=== PATIENT | female | born 1980 | race Hispanic/Latino ===

== ENCOUNTER 2017-06-09 11:23 | Emergency (ER) | payer OTHER ==
[2017-06-09] MEDS ORDERED: Bupivacaine 0.25% 10 ML VIAL ONE (13:38)
[2017-06-09] MEDS ORDERED: Piperacillin/Tazobactam 3.375 GM in Sodium Chloride 0.9% 100 ML IVPB SCH (13:45)
[2017-06-09] MEDS ORDERED: Ibuprofen 200 MG TAB ONE (15:12)
== END 2017-06-09 15:16 | disposition home or self-care (01) ==
LOC: ERS 11:23
DX: N76.0 Acute vaginitis (principal); K50.90 Crohn's disease, unspecified, without complications
CPT/HCPCS: 56405; 87070; 87205; 96365; J2543; J7050; S0020

== ENCOUNTER 2017-11-03 16:11 | Inpatient (IN) | payer OTHER ==
[~2017-11-03 16:11] MED LIST: Iopamidol 370 76% 100 ML VIAL ONE
[2017-11-03 16:43] LABS: #Eosinphils 0.1 thou/uL (0.0-0.7); #Lymphocytes 1.4 thou/uL (1.20-3.40); #Monocytes 0.5 thou/uL (0.11-0.59); #Neutrophils 6.7 thou/uL (1.40-6.50); %Basophils 0.2 % (0.0-1.0); %Lymphocytes 15.7 % (21.0-51.0); %Monocytes 5.2 % (0.0-10.0); %Neutrophils 77.9 % (42.0-75.0); Hemoglobin 9.1 g/dL (12.0-16.0); Mean Corpuscular Hemoglobin 24.9 pg (27.0-31.0); Mean Corpuscular Volume 80.4 fl (81.0-99.0); Mean Platelet Volume 6.4 fL (7.4-10.4); Platelet Count 493 thou/uL (130-400); RBC Distribution Width 14.4 % (11.5-14.5); Red Blood Cell (RBC) Count 3.66 mill/uL (4.20-5.40); White Blood Cell (WBC) Count 8.6 thou/uL (4.8-10.8)
[2017-11-03 17:00] LABS: Bilirubin Negative (Negative); Blood, Urine Small (Negative); Clarity TURBID (Clear); Glucose, Urine (Dipstick) Negative (Negative); Leukocyte Large (Negative); Nitrite Negative (Negative); Protein, Urine (Dipstick) 30 mg/dL (Neg-Trace); Specific Gravity, Urine 1.027 (1.002-1.036); pH, Urine 5.5 (5.0-9.0)
[2017-11-03 17:02] LABS: Bacteria/HPF Rare-Few HPF (None Seen); Hyaline Casts/LPF 0-3 HYALINE CAST LPF (0-3 Hyaline); Pathc Cast-AUWi Flag 0.58 (0-2.49); Squamous Epithelial 0-3 HPF (0-3)
[2017-11-03 17:04] LABS: ALT (SGPT) Less than 7 U/L (8-55); AST (SGOT) 7 U/L (5-34); Albumin 3.1 g/dL (3.5-5.0); Alkaline Phosphatase 84 U/L (40-150); Anion Gap 9 mmol/L (10-20); BUN (Urea Nitrogen) 10 mg/dL (7.0-18.7); Bilirubin, Total 0.3 mg/dL (0.2-1.2); Calc. Creatinine Clearance 0 mL/min (70-130); Calcium 8.6 mg/dL (7.8-10.44); Carbon Dioxide 25 mmol/L (22-29); Chloride 104 mmol/L (98-107); Estimated GFR-MDRD 78; Globulin 4.9 g/dL (2.4-3.5); Glucose 97 mg/dL (70-105); Lipase 17 U/L (8-78); Potassium 3.5 mmol/L (3.5-5.1); Sodium 134 mmol/L (136-145)
[2017-11-03 17:04] LABS: Yeast-AUWi Flag 37.9 (0-25.0)
[2017-11-03 17:05] LABS: Pregnancy Test - Urine (BHCG) Negative (Negative); Pregu Control Background? CLEAR/WHITE (CLR/WHITE); Pregu Control Bar Appear? YES (CONTROL BAR); Specific Gravity 1.027 (1.002-1.036)
[2017-11-03 17:19] LABS: RBC/HPF 0-3 HPF (0-3); Renal Epithelial None Seen HPF (0-3); Transitional Epithelial NONE SEEN HPF (0-3); Yeast-All Forms None Seen HPF (None Seen)
[2017-11-03 17:20] LABS: Crystals/HPF 4+ AMORPH URATES HPF (Negative)
--- NOTE | 2017-11-03 18:34 | CT ---
CT OF THE ABDOMEN AND PELVIS WITH IV CONTRAST 11/03/17 INDICATION: History of Crohn's disease. Concern for possible colitis. COMPARISON: CT of the abdomen and pelvis dated 02/14/16. CT of the pelvis dated 10/12/16. FINDINGS: Lung bases are clear. The gallbladder is surgically absent. Liver, spleen, pancreas, adrenal glands a nd kidneys are normal appearing. There is wall thickening and inflammatory stranding involving the distal ileum, cecum, and appendix w ith surrounding inflammatory infiltration and fluid present within the right lower quadrant of the ab domen. There is no evidence to suggest perforation. No drainable fluid collection is evident. There i s mild free fluid in the pelvis. There is a 3 cm follicle within the right ovary. Bladder is decompressed. No acute osseous abnormalit y is evident. IMPRESSION: 1. Wall thickening with inflammation involving the ileum, cecum, portions of appendix, mild free fluid in the pelvis. No drainable fluid collection is evident. No definite free air is noted. 2. Right adnexal cyst. POS: EDEL
[2017-11-03] MEDS ORDERED: Fentanyl 100 MCG/2 ML VIAL ONE (18:45)
[2017-11-03] MEDS ORDERED: metroNIDAZOLE 500 MG/100 ML BAG ONE (19:23)
[2017-11-03] MEDS ORDERED: Piperacillin/Tazobactam 4.5 GM VIAL ONE (19:23)
[2017-11-03] MEDS ORDERED: methylPREDNISolone Sod Succ/PF 125 MG/2 ML VIAL ONE (19:23)
--- NOTE | 2017-11-03 20:05 | HP ---
CHIEF COMPLAINT: Abdominal pain. HISTORY OF PRESENT ILLNESS: This is a 37-year-old female admitted to my service from Dr. White in the [facility]. The patient has a history of Crohn disease, mostly perianal without m ultiple abscesses and fistulas. She was previously on Humira under the care of Dr. Kwabena Rodriguez; ho gary, with an insurance change, the medicines were deemed too expensive, not covered by her insuranc e. She has been off all medicines for a few years now, has been lost to follow up with Dr. Rodriguez. S he presents with severe pain in the right lower quadrant. This kept her from eating much over the la st few days. She is also noted significantly more diarrhea than she had had. No dysuria, no blood i n stool. No significant vomiting. She is unsure of the extent of her previous Crohn disease other t myles involving her perianal area. She is unsure if she had previous small bowel involvement or not. Her CT scan shows phlegmonous changes in the right lower quadrant. The pain is described as 03/16 an d sharp. Nothing makes it better or worse. PAST MEDICAL HISTORY: Crohn disease, perianal involvement. PAST SURGICAL HISTORY: Laparoscopic cholecystectomy and . MEDICINES: None. ALLERGIES: No known drug allergies. SOCIAL HISTORY: No smoking, alcohol or other drugs currently. She works at [email or web address]. REVIEW OF SYSTEMS: Ten-system review of systems, otherwise negative unless described above. PHYSICAL EXAMINATION: VITAL SIGNS: Pulse 119 and blood pressure 107/81. She is afebrile. HEENT: Sclerae are anicteric. Oropharynx clear. NECK: No lymphadenopathy. CHEST: Clear. HEART: Increased rate, regular rhythm without murmur. ABDOMEN: Soft. Tender in the right lower quadrant, localized guarding, without rebound. No abdomin al or inguinal hernias. EXTREMITIES: No ischemia or edema to extremities. LABORATORY DATA: White blood cell count 8, hemoglobin 9 and platelet count is 493. Sodium 134, pota ssium 3.5, creatinine 0.[address] scan as above. ASSESSMENT: Phlegmon in the right lower quadrant, likely related to chronic inflammatory bowel disea se. PLAN: Volume resuscitation. Admit, n.p.o., IV fluids and broad-spectrum antibiotics. We will discu ss with Dr. Crawford likely needs to be started on something acutely for Crohn exacerbation and then so mething chronic to prevent recurrences in the future. We will also examine her backside tomorrow aylin pineda to get an idea of the extent of her perianal involvement.
[2017-11-03] MEDS ORDERED: Sodium Chloride 0.45% 1,000 ML IV SCH (20:45)
[2017-11-03] MEDS ORDERED: Fentanyl 100 MCG/2 ML VIAL SLOW IVP PRN (20:46)
[2017-11-03] MEDS ORDERED: HYDROcodone/Acetaminophen 5/325 mg Tablet PO PRN ×2 (20:46)
[2017-11-03] MEDS ORDERED: Acetaminophen 325 MG TAB PO PRN (20:46)
[2017-11-03] MEDS ORDERED: Ondansetron ODT 4 MG TAB SL PRN (20:46)
[2017-11-03] MEDS ORDERED: Ondansetron HCl/PF 4 MG/2 ML Vial IVP PRN ×2 (20:46→21:05)
[2017-11-03] MEDS ORDERED: Morphine 4 MG/ML VIAL SLOW IVP PRN ×2 (21:05)
[2017-11-03] MEDS ORDERED: Dextrose 5% in Water 1,000 ML IV PRN (21:05)
[2017-11-03] MEDS ORDERED: hydrALAZINE 20 MG/ML VIAL SLOW IVP PRN (21:05)
[2017-11-03] MEDS ORDERED: Dextrose 50% Abboject 50 ML SYRINGE SLOW IVP PRN (21:05)
[2017-11-03] MEDS ORDERED: Promethazine HCl 25 MG/ML VIAL IM PRN (21:05)
[2017-11-03] MEDS ORDERED: Acetaminophen 1,000 MG in Premix Bag 1 BAG IVPB PRN (21:05)
[2017-11-03] MEDS: Famotidine 20 MG TAB PO SCH (22:42)
[2017-11-03] MEDS: D5 1/2 NS w/20 mEq KCL 1,000 ML IV SCH (22:42)
[2017-11-03] MEDS: Famotidine/PF 20 mg/2ml Vial SLOW IVP SCH (22:42)
[2017-11-03 23:10] VITALS: BMI 20.4
[2017-11-04] MEDS: D5 1/2 NS w/20 mEq KCL 1,000 ML IV SCH ×2 (00:14→09:20)
[2017-11-04] MEDS: Piperacillin/Tazobactam 3.375 GM in Sodium Chloride 0.9% 100 ML IVPB SCH ×4 (01:47→20:00)
[2017-11-04] MEDS: Ketorolac Tromethamine 30 MG/ML VIAL IVP SCH ×4 (01:52→19:20)
[2017-11-04] MEDS ORDERED: Sodium Chloride 0.9% 1,000 ML IV SCH (04:30)
[2017-11-04 05:47] LABS: #Lymphocytes 0.7 thou/uL (1.20-3.40); #Neutrophils 6.5 thou/uL (1.40-6.50); %Lymphocytes 9.5 % (21.0-51.0); %Monocytes 0.6 % (0.0-10.0); %Neutrophils 89.8 % (42.0-75.0); Hemoglobin 7.8 g/dL (12.0-16.0); Mean Corpuscular HGB CONC 30.1 g/dL (32.0-36.0); Mean Corpuscular Hemoglobin 25.1 pg (27.0-31.0); Mean Corpuscular Volume 83.2 fl (81.0-99.0); Platelet Count 344 thou/uL (130-400); RBC Distribution Width 14.5 % (11.5-14.5); Red Blood Cell (RBC) Count 3.11 mill/uL (4.20-5.40); White Blood Cell (WBC) Count 7.3 thou/uL (4.8-10.8)
[2017-11-04 06:05] LABS: Anion Gap 5 mmol/L (10-20); BUN (Urea Nitrogen) 7 mg/dL (7.0-18.7); Calc. Creatinine Clearance 87 mL/min (70-130); Calcium 7.8 mg/dL (7.8-10.44); Carbon Dioxide 23 mmol/L (22-29); Chloride 111 mmol/L (98-107); Estimated GFR-MDRD Greater than 90; Glucose 156 mg/dL (70-105); Potassium 3.7 mmol/L (3.5-5.1); Sodium 135 mmol/L (136-145)
[2017-11-04] MEDS: Famotidine/PF 20 mg/2ml Vial SLOW IVP SCH ×2 (09:17→19:59)
[2017-11-04] MEDS: Famotidine 20 MG TAB PO SCH ×2 (09:17→20:00)
--- NOTE | 2017-11-04 09:44 | PDOC.GSPN ---
Surgery Progress Note: Subj - Subjective Narrative: Feels better today. No nausea Surgery Progress Note: Obj - Vital signs Vital signs: Vital Signs - Most Recent Temp Pulse Resp BP Pulse Ox 97.5 F L 63 14 89/50 L 100 11/04/17 07:44 11/04/17 07:44 11/04/17 07:44 11/04/17 07:44 11/04/17 07:44 - Physical Exam General: no distress Respiratory: clear to auscultation Abdomen: soft, nondistended, tender (in the right lower quadrant improved) Additional exam: Perineum: Examination reveals multiple fistula openings without abscess. No mass Surgery Progress Note: Results - Labs Result Diagrams: 11/04/17 05:15 11/04/17 05:15 Lab results: Laboratory Results - last 24 hr 11/04/17 11/04/17 05:15 05:15 WBC 7.3 RBC 3.11 L Hgb 7.8 L Hct 25.9 L MCV 83.2 MCH 25.1 L MCHC 30.1 L RDW 14.5 Plt Count 344 MPV 7.0 L Neutrophils % 89.8 H Lymphocytes % 9.5 L Monocytes % 0.6 Eosinophils % 0.0 Basophils % 0.0 Neutrophils # 6.5 Lymphocytes # 0.7 L Monocytes # 0.0 L Eosinophils # 0.0 Basophils # 0.0 Sodium 135 L Potassium 3.7 Chloride 111 H Carbon Dioxide 23 Anion Gap 5 L BUN 7 Creatinine 0.68 Estimated GFR (MDRD) Greater than 90 Glucose 156 H Calcium 7.8 Surgery Progress Note: A/P - Problem (1) Crohns disease Current Visit: Yes Code(s): K50.90 - CROHN'S DISEASE, UNSPECIFIED, WITHOUT COMPLICATIONS Status: Acute - Plan Plan: Dr Crawford to see today. Needs to be back on medication for crohns. Will allow clear liquids. continue zosyn
[2017-11-04] MEDS ORDERED: Sodium Ferric Gluconate 250 MG in Sodium Chloride 0.9% 100 ML IVPB SCH (16:15)
--- NOTE | 2017-11-04 22:25 | CON ---
DATE OF CONSULTATION: 11/04/2017 REASON FOR CONSULTATION: History of Crohn disease admitted with a phlegmon right lower quadrant. HISTORY OF PRESENT ILLNESS: Ms. Gardner is a pleasant 37-year-old female who was diagnosed with Crohn d isease [place] [address] Rodriguez. She is having recurrent perineal infections and labial infections with fistulas that were not responding to antibiotic treatment. There was some thought initially maybe vamshi kang had hidradenitis suppurativa, but ultimately she underwent endoscopic evaluation and was found to h ave a little bit of ileal and ileocecal valve erosions, which is enough to convince Dr. Rodriguez that vamshi kang probably had Crohn disease. She did have positive [employer] serologies. She reports that they wa nted to give her Remicade at first, her insurance would not cover that, so they gave her Humira. She was on that up until about a year and a half ago. She had some improvement. It seems but not a lot because she ultimately was sent to [place] for treatment of perianal fistula surgery with some Seton s. When she lost her her insurance, she reports they took those out. She estimates she has not seen Dr. Rodriguez about a year and a half. She has lost about 20 pounds. She did okay for a while and just tried to get by as best as she could but in the past couple of months, she has had more pain, little bit more diarrhea. She states the perianal disease really never got better. She continues to have drainage on and off. She has had some low-grade temperature at times in the past couple of weeks. S he has had no overt chills. She ultimately came to the hospital yesterday because the pain became mu ch worse over the past week. PAST MEDICAL HISTORY: Crohn disease with initial diagnosis for perianal involvement, previous treate d with Humira with equivocal results and treatment with perianal Setons which were removed. She stat es in [place] when she lost her insurance. PAST SURGICAL HISTORY: Laparoscopic cholecystectomy and . HOME MEDICATIONS: None. ALLERGIES: None. SOCIAL HISTORY: The patient does not smoke, drink or use drugs. She works at [employer]. REVIEW OF SYSTEMS: She denies dysphagia, odynophagia, shortness breath, chest pain, dyspnea on exert ion. No rashes, myalgias, or arthralgias. No oral ulcers, no eye problems. She does feel very fati gued and has for the past several weeks. She gets dizzy when she stands up. PRESENT MEDICATIONS: Tylenol p.r.n., DuoNeb p.r.n., Pepcid q.12 hours, Toradol 10 IV q.4 hours p.r.n . for pain to 15 q.4 hours p.r.n. for pain, morphine p.r.n. for pain, Zofran, Zosyn, D5 half normal , and Phenergan p.r.n. PHYSICAL EXAMINATION: VITAL SIGNS: On initial presentation, her pulse is in the 112 range, presently 61, temperature 97, b lood pressure 102/63. GENERAL: She is thin and frail. HEENT: Oropharynx without lesions. NECK: Supple without any adenopathy. LUNGS: Clear. HEART: Regular rate and rhythm without clicks or murmurs. ABDOMEN: Scaphoid and thin. There is some tenderness in right lower quadrant. No palpable mass. RECTAL: Perianal exam reveals some fistulous tracts with some drainage, but no overt abscess. SKIN: Otherwise, without rash or lesions. LABORATORY STUDIES: Thus far, white count 7.3, hemoglobin 7.8, MCV is 82, platelet count is 344 down from 493. Hemoglobin on 03/2016 was 9.9. Sodium 134, potassium 3.5, chloride 104, BUN is 10, creat inine 0.82. Iron was 17 with a TIBC of 188, ferritin of 184 and 126. Liver function tests to be nor mal with bilirubin 0.6, ALT of 7, alkaline phosphatase of 96, albumin 3.3, 8.1. Vitamin B12 wa s 238 on 10/30. Vitamin D was 9.1 on 10/30. test, serum negative on 10/30. Lipase normal on 11/03. CT scan, I reviewed the images myself. They show phlegmon in the right lower quadrant. Cecum portion of the appendix. Small free fluid in the pelvis. No drainable abscesses. There is a cyst in the right adnexa as well. ASSESSMENT: Crohn disease. She does not feel like it was very helpful when she was on Humira, but she was on elvin t from time of diagnosis about 2012, she states about a year and a half ago. Recently, she was worse in the past month or so, has lost 20 pounds and has developed phlegmon in the right lower quadrant. She has been treated in the past with Setons for perianal fistulas which never completely healed and she has been treated in the past with Humira. Presently, she is admitted with pain, weight loss, si gnificant inflammation and dehydration. She is anemic as well with normal B12, slightly low iron. S ome of her anemia is probably related to chronic disease. She has responded to IV fluids. Her hemoglobin has dropped with hydration. She shows no signs of ac alexis hemorrhage. She has got a phlegmon, but no definable abscess. She has been started on Zosyn. RECOMMENDATIONS: 1. We would go ahead and start her on some Solu-Medrol IV. This will help lessen inflammation and h elp speed up resolution. 2. We will check a TB screen. 3. We will check hepatitis B screen as well. Anticipation of restarting a biologic. We will contin ue to follow along with you.
[2017-11-05] MEDS: Ketorolac Tromethamine 30 MG/ML VIAL IVP SCH ×3 (00:52→12:05)
[2017-11-05] MEDS: D5 1/2 NS w/20 mEq KCL 1,000 ML IV SCH ×2 (00:53→16:56)
[2017-11-05] MEDS: Piperacillin/Tazobactam 3.375 GM in Sodium Chloride 0.9% 100 ML IVPB SCH ×4 (02:59→20:50)
--- NOTE | 2017-11-05 07:45 | PRG ---
DATE OF SERVICE: 11/05/2017 SUBJECTIVE: Ms. Gardner feels better. Her pain is almost gone. She is still having diarrhea. No naus ea or vomiting with a clear liquid diet. PHYSICAL EXAMINATION: VITAL SIGNS: She is afebrile. Vital signs are stable. Blood pressure runs low as usual. ABDOMEN: Soft, tender in the right lower quadrant only to deep palpation. ASSESSMENT: Crohn's disease with exacerbation in the right lower quadrant with phlegmon with continu ed perianal Crohn's disease. PLAN: Continue broad spectrum antibiotics. Dr. Crawford started steroids. Likely can be discharged, converted to outpatient steroids over the next day or two. We will advance to full liquids.
[2017-11-05] MEDS: Famotidine 20 MG TAB PO SCH ×2 (07:52→20:50)
[2017-11-05 10:16] LABS: HBSAB Concentration 0.73 mIU/mL; HBSAg Index 0.17 S/CO (0-0.99); Hep B Surf AB Non-Reactive (NonReactive); Hep B Surf Ag Non-Reactive S/CO (NonReactive)
[2017-11-05] MEDS: Famotidine/PF 20 mg/2ml Vial SLOW IVP SCH ×2 (11:27→20:50)
[2017-11-05] MEDS ORDERED: Sterile Water 10 ML ONE (14:07)
[2017-11-05 15:57] LABS: #Lymphocytes 1.5 thou/uL (1.20-3.40); #Monocytes 0.3 thou/uL (0.11-0.59); #Neutrophils 11.8 thou/uL (1.40-6.50); %Basophils 0.3 % (0.0-1.0); %Eosinophils 0.1 % (0.0-10.0); %Lymphocytes 10.8 % (21.0-51.0); %Neutrophils 86.8 % (42.0-75.0); Hemoglobin 8.7 g/dL (12.0-16.0); Mean Corpuscular HGB CONC 31.1 g/dL (32.0-36.0); Mean Corpuscular Hemoglobin 26.1 pg (27.0-31.0); Mean Corpuscular Volume 83.8 fl (81.0-99.0); Mean Platelet Volume 7.5 fL (7.4-10.4); Platelet Count 456 thou/uL (130-400); RBC Distribution Width 14.7 % (11.5-14.5); Red Blood Cell (RBC) Count 3.33 mill/uL (4.20-5.40); White Blood Cell (WBC) Count 13.6 thou/uL (4.8-10.8)
[2017-11-05] MEDS: Folic Acid 1 MG TAB PO SCH (16:57)
[2017-11-05] MEDS: Multivitamin W/ Minerals 1 TAB PO SCH (16:57)
[2017-11-05] MEDS: Calcium Carbonate + Vit D 1 TAB PO SCH (16:57)
--- NOTE | 2017-11-05 18:26 | PRG ---
DATE OF SERVICE: 11/05/2017 SUBJECTIVE: Ms. Gardner states her pain is resolved, started on some IV steroids yesterday. She has patel d no fever or chills. She has had no diarrhea. There is no bleeding. She received some IV iron yes terday. OBJECTIVE: VITAL SIGNS: Temperature 97.6, pulse 63, blood pressure 82/53. Despite this, she has been up and wa lking around. GENERAL: She is alert and oriented to person, place and time. LUNGS: Clear. HEART: Regular rate and rhythm without clicks or murmurs. ABDOMEN: Soft and nontender without rebound or guarding. ASSESSMENT: 1. Crohn's ileal with a phlegmon. 2. Crohn's perianal with no abscesses, with some drainage. Details as per HPI yesterday. 3. Abdominal pain associated with phlegmon is improving. She has no fever or signs of sepsis. 4. Anemia, likely of chronic disease, recently had a low iron of 17. She was given some IV iron yes terday, her TIBC, however, is low also. She has normal B12 and her folate is low and her vitamin D w as 9.1. 5. She does have hemoglobin 7.8 yesterday after hydration. She has had no signs of acute bleeding. 6. Hypertension. She is quite thin and has lost weight and she is walking without dizziness. I omid pect this is related to overall illness. She is on IV steroids with drop in hemoglobin yesterday. W e will recheck today to make sure there is no significant anemia. RECOMMENDATIONS: 1. Check hemoglobin. 2. Start vitamin D. 3. Start folic acid replacement. We will give her a multivitamin as well. 4. She continues to improve and hope she can go home in 1-2 days and oral steroids and antibiotics. She will be started on a new biologic therapy for her Crohn's which we will do in the outpatient set
[2017-11-06] MEDS: Piperacillin/Tazobactam 3.375 GM in Sodium Chloride 0.9% 100 ML IVPB SCH ×4 (01:15→21:05)
[2017-11-06 05:58] LABS: Hemoglobin 8.4 g/dL (12.0-16.0)
[2017-11-06 06:16] LABS: Anion Gap 10 mmol/L (10-20); BUN (Urea Nitrogen) 6 mg/dL (7.0-18.7); Calc. Creatinine Clearance 75 mL/min (70-130); Calcium 8.4 mg/dL (7.8-10.44); Carbon Dioxide 21 mmol/L (22-29); Chloride 110 mmol/L (98-107); Estimated GFR-MDRD 81; Glucose 113 mg/dL (70-105); Magnesium 2.2 mg/dL (1.6-2.6); Phosphorus 3.7 mg/dL (2.3-4.7); Potassium 3.9 mmol/L (3.5-5.1); Sodium 137 mmol/L (136-145)
[2017-11-06] MEDS: Calcium Carbonate + Vit D 1 TAB PO SCH ×2 (09:01→16:47)
[2017-11-06] MEDS: Multivitamin W/ Minerals 1 TAB PO SCH (09:01)
[2017-11-06] MEDS: Famotidine/PF 20 mg/2ml Vial SLOW IVP SCH ×2 (09:02→21:36)
[2017-11-06] MEDS: Famotidine 20 MG TAB PO SCH ×3 (09:02→21:07)
[2017-11-06] MEDS: Folic Acid 1 MG TAB PO SCH (09:02)
--- NOTE | 2017-11-06 09:36 | PRG ---
DATE OF SERVICE: 11/06/2017 SUBJECTIVE: Ms. Gardner feels better. Her pain is much improved. She did have a couple of bloody nancy l movements, but her vital signs have remained stable. PHYSICAL EXAMINATION: VITAL SIGNS: She is afebrile and her vital signs are stable. ABDOMEN: Soft, really nontender now with right lower quadrant guarding has resolved. LABORATORY DATA: Her hemoglobin and hematocrit is 8 and 27, unchanged since yesterday. Her initial hemoglobin was 9. So she really is pretty much the same as on admission. ASSESSMENT: Crohn's ileitis, Crohn's perianal disease, on steroids and broad spectrum antibiotics. PLAN: We will leave up to Dr. Crawford. Likely she can be discharged home on oral steroids. I am not sure she needs oral antibiotics at this point and convert her long-term management to outpatient.
--- NOTE | 2017-11-06 10:09 | PQF ---
CLINICAL DOCUMENTATION IMPROVEMENT CLARIFICATION FORM: ICD-10 Updated PLEASE DO AN ADDENDUM TO THE PROGRESS NOTE WITH ANY DOCUMENTATION UPDATES OR ADDITIONS AND CARRY THROUGH TO DC SUMMARY. THANK YOU. DATE: 11/06/17 ATTN : DR. BILLINGS Please exercise your independent, professional judgment in responding to the clarification form. Clinical indicators are provided on the bottom of this form for your review Please check appropriate box(es): [ ] Sepsis due to: (Pna, UTI, gangrenous gall bladder, etc.) Due to: [ ] Device (please specify) [ ] Implant [ ] Graft [ ] Infusion [ ] SIRS due to non-infectious process (please specify etiology) [ ] with organ dysfunction [ ] without organ dysfunction [ ] Severe sepsis with acute organ dysfunction of: (Examples: respiratory failure, encephalopathy, acute kidney failure, other) [ ] Septic Shock [ x ] Localized infection without sepsis [ x ] Other diagnosis ____crohns exacerbation, no sepsis [ ] Unable to determine In addition, please specify: Present on Admission (POA): [ ] Yes [ ] No [ ] Unable to determine For continuity of documentation, please document condition throughout progress notes and discharge summary. Thank You. CLINICAL INDICATORS - SIGNS / SYMPTOMS / LABS ER NOTE: "SEPSIS" BP 93/58 PULSE 125 WBC 13.6 RISKS: CROHN'S FLARE TREATMENT: IV ZOSYN (ER-PRESENT) IV FLUIDS (ER-PRESENT) IV FLAGYL (ER) BLOOD AND URINE CULTURES (This form is maintained as a part of the permanent medical record) [employer] 2014 [employer]. All Rights Reserved DAVID [email or web address] Office: [phone] [facility] CRIMIN[facility] INSANENickie
[2017-11-06] MEDS: D5 1/2 NS w/20 mEq KCL 1,000 ML IV SCH (16:47)
[2017-11-07] MEDS: Piperacillin/Tazobactam 3.375 GM in Sodium Chloride 0.9% 100 ML IVPB SCH ×4 (03:33→19:02)
--- NOTE | 2017-11-07 08:02 | PRG ---
DATE OF SERVICE: 11/07/2017 SUBJECTIVE: Ms. Gardner is having some mild cramping when she eats solid food, still passing small amou nts of blood. PHYSICAL EXAMINATION: VITAL SIGNS: Blood pressure is 83/46, her pulse is 52, respirations 14. She is afebrile. Five nancy l movements yesterday. ABDOMEN: Soft, appropriately mildly tender in the right lower quadrant, much improved since admissio n. ASSESSMENT: Crohn's ileitis with perianal involvement as well. Exacerbation improving. Mild crampi ng with solid food is likely going to persist for the next few weeks as her inflammation resolves. S he is having some minor bleeding with her bowel movements, likely related to her Crohn's perianal dis ease, but her hemoglobin is unchanged. PLAN: Discharge home today on oral antibiotics. Reestablish a relationship with GI as an outpatient . Unlikely to need surgery for this acute exacerbation.
[2017-11-07] MEDS: Calcium Carbonate + Vit D 1 TAB PO SCH ×2 (08:33→16:43)
[2017-11-07] MEDS: Multivitamin W/ Minerals 1 TAB PO SCH (08:34)
[2017-11-07] MEDS: Folic Acid 1 MG TAB PO SCH (08:34)
[2017-11-07] MEDS: Famotidine/PF 20 mg/2ml Vial SLOW IVP SCH (08:34)
[2017-11-07] MEDS: Famotidine 20 MG TAB PO SCH ×2 (08:34→20:26)
[2017-11-07 19:29] VITALS: BP 100/62; TEMP 98.6
--- NOTE | 2017-11-08 12:38 | DIS ---
SUBJECTIVE: Ms. Gardner has no abdominal pain today. She is tolerating a solid diet well. She has bee n having liquidy diarrhea as many as 8 times per day with small amount of blood since starting the an tibiotics. OBJECTIVE: VITAL SIGNS: Temperature 96.6, pulse 61, blood pressure 100/62. GENERAL: She is in no acute distress. She is awake and alert. LUNGS: Clear to auscultation bilaterally. HEART: Regular rate and rhythm without murmur. ABDOMEN: Soft, nontender, nondistended. Bowel sounds are present. EXTREMITIES: No lower extremity edema. DISCHARGE DIAGNOSIS: 1. Exacerbation of fistulizing perianal and terminal ileum, Crohn's disease. She presents with phle gmon. 2. Urinary tract infection. 3. Vitamin D deficiency. 4. Anemia of chronic disease ADMITTING ATTENDING: Dr. Benja Del Valle. CONSULTANTS: Gastroenterology with Dr. Crawford and Dr. Kwabena Rodriguez. IMAGING: CT scan of the abdomen and pelvis was done on 11/03/2017, showing wall thickening and infla mmatory changes around the ileum, cecum and appendix. No drainable fluid collection was seen or free air. HOSPITAL COURSE: The patient presented with abdominal pain. She has been off Humira over the last y ear and a half. She has not been following with GI. She was admitted and started on IV fluids and I V steroids with methylprednisolone q.8h. She was started on IV antibiotics with Zosyn. She symptoma tically greatly improved with the steroids and antibiotics. By 11/07/2017, she was tolerating a low residue diet very well without abdominal pain. She did develop diarrhea with the initiation of the a ntibiotics. She was also noted to have a urinary tract infection with E. coli, which was pansensitiv e. PLAN: 1. She will discharge home today on an additional 7 days of ciprofloxacin and metronidazole. So far , she has received 3 days of Zosyn already. 2. She will discharge on oral steroids, prednisone 40 mg daily for a week, then 30 mg daily for a we ek, then 20 mg daily for a week, then 10 mg daily for a week and finally 5 mg daily for a week and th en discontinue. She should follow up in GI clinic in 2 weeks and follow up with her primary care idalia patel in the meantime as well. She will need to verify her vaccinations are up to date as an outpat ient including: Hepatitis A, hepatitis B, pneumonia vaccine, diphtheria pertussis and tetanus. 3. Her hepatitis B is confirmed to be negative. Hepatitis C and HIV have been negative in the past. The QuantiFERON is pending and she will need to verify this is negative, before starting the next a nti-TNF. 4. The plan is to start infliximab or the biosimilar Inflectra. We will initiate the approval proce ss through her insurance as an outpatient. She will continue the oral steroid taper in the meantime. 5. She was noted to have vitamin D deficiency and anemia of chronic disease. She has been started o n multiple vitamins, vitamin D, folic acid, when she will be discharged on as well without prescripti on. She can get these over the counter.
== END 2017-11-07 20:55 | disposition home or self-care (01) | DRG 386 ==
LOC: ERS 16:11 → SURG A 19:34
PROVIDERS: ADMIT Surgery; ATTEND Surgery
DX: D63.8 Anemia in other chronic diseases classified elsewhere; K50.813 Crohn's disease of both small and large intestine with fistula; E55.9 Vitamin D deficiency, unspecified; K60.3 Anal fistula; B96.20 Unspecified Escherichia coli [E. coli] as the cause of diseases classified elsewhere; E86.0 Dehydration; K50.014 Crohn's disease of small intestine with abscess; N39.0 Urinary tract infection, site not specified; K50.811 Crohn's disease of both small and large intestine with rectal bleeding; I10 Essential (primary) hypertension
CPT/HCPCS: 36415; 74177; 80048; 80053; 81003; 81015; 81025; 83605; 83690; 83735; 84100; 85014; 85018; 85025; 86480; 86706; 87040; 87077; 87086; 87186; 87340; 96361; 96365; 96367; 96375; A4216; J1885; J2270; J2543; J2916; J2920; J2930; J3010; J7050

== ENCOUNTER 2018-06-04 08:48 | Day surgery (SDC) | payer SELFPAY ==
[2018-06-04] MEDS ORDERED: Sodium Chloride 0.9% 20 ML ONE (09:06)
[2018-06-04] MEDS ORDERED: diphenhydrAMINE 25 MG CAP PO SCH (09:15)
[2018-06-04] MEDS ORDERED: SODIUM CHLORIDE 0.9% IVPB SCH ×2 (09:15→09:30)
[2018-06-04] MEDS ORDERED: INFLIXIMAB DYYB IVPB SCH ×2 (09:15→09:30)
[2018-06-04] MEDS ORDERED: Acetaminophen 500 MG TAB PO SCH (09:15)
[2018-06-04] MEDS ORDERED: Sodium Chloride 0.9% 1,000 ML IV SCH (09:15)
[2018-06-04 09:26] VITALS: BP 98/64; TEMP 97.7
== END 2018-06-04 12:40 | disposition home or self-care (01) ==
LOC: ONC/OP 08:48
PROVIDERS: ATTEND Internal Medicine Gastroenterology
DX: K50.90 Crohn's disease, unspecified, without complications (principal)
CPT/HCPCS: 96413; 96415; J1745; J7050

== ENCOUNTER 2018-06-18 08:53 | Day surgery (SDC) | payer SELFPAY ==
[2018-06-18] MEDS ORDERED: Acetaminophen 500 MG TAB PO SCH (09:45)
[2018-06-18] MEDS ORDERED: diphenhydrAMINE 25 MG CAP PO SCH (09:45)
[2018-06-18] MEDS ORDERED: INFLIXIMAB DYYB IVPB SCH (10:15)
[2018-06-18] MEDS ORDERED: SODIUM CHLORIDE 0.9% IVPB SCH (10:15)
[2018-06-18 10:41] VITALS: BP 98/46; TEMP 98.2
== END 2018-06-18 12:44 | disposition home or self-care (01) ==
LOC: ONC/OP 08:53
PROVIDERS: ATTEND Internal Medicine Gastroenterology
DX: K50.90 Crohn's disease, unspecified, without complications (principal)
CPT/HCPCS: 96413; 96415

== ENCOUNTER 2018-07-20 12:09 | Day surgery (SDC) | payer SELFPAY ==
[2018-07-20] MEDS ORDERED: SODIUM CHLORIDE 0.9% IVPB SCH ×2 (12:30→13:30)
[2018-07-20] MEDS ORDERED: Acetaminophen 500 MG TAB PO SCH (12:30)
[2018-07-20] MEDS ORDERED: INFLIXIMAB IVPB SCH (12:30)
[2018-07-20] MEDS ORDERED: diphenhydrAMINE 25 MG CAP PO SCH (12:30)
[2018-07-20] MEDS ORDERED: Sodium Chloride 0.9% 20 ML ONE (12:32)
[2018-07-20 12:47] VITALS: BP 99/51; TEMP 98.6
[2018-07-20] MEDS ORDERED: INFLIXIMAB DYYB IVPB SCH (13:30)
== END 2018-07-20 15:18 | disposition home or self-care (01) ==
LOC: ONC/OP 12:09
PROVIDERS: ATTEND Internal Medicine Gastroenterology
DX: K50.813 Crohn's disease of both small and large intestine with fistula (principal)
CPT/HCPCS: 96413; 96415; J1745; J7050

== ENCOUNTER 2018-09-14 08:45 | Day surgery (SDC) | payer SELFPAY ==
[~2018-09-14 08:45] MED LIST changes: +Acetaminophen 500 MG TAB PO SCH; +INFLIXIMAB DYYB IVPB SCH; -Iopamidol 370 76% 100 ML VIAL ONE; +SODIUM CHLORIDE 0.9% IVPB SCH; +diphenhydrAMINE 25 MG CAP PO SCH
[2018-09-14] MEDS ORDERED: Sodium Chloride 0.9% 0 ML ONE (08:55)
[2018-09-14] MEDS ORDERED: Sodium Chloride 0.9% 30 ML ONE (10:13)
[2018-09-14 10:16] VITALS: BP 98/60; TEMP 98.6
== END 2018-09-14 13:24 | disposition home or self-care (01) ==
LOC: ONC/OP 08:45
PROVIDERS: ATTEND Internal Medicine Gastroenterology
DX: K50.813 Crohn's disease of both small and large intestine with fistula (principal); Z87.891 Personal history of nicotine dependence; Z79.52 Long term (current) use of systemic steroids; Z79.899 Other long term (current) drug therapy
CPT/HCPCS: 96413; 96415; J7050; Q0163

== ENCOUNTER 2018-10-17 18:13 | Emergency (ER) | payer MEDICAID, OTHER | END 2018-10-17 21:09 | disposition home or self-care (01) | LOC: ERS 18:13 | DX: L02.31 Cutaneous abscess of buttock (principal); K58.9 Irritable bowel syndrome, unspecified | CPT/HCPCS: 10061 ==

== ENCOUNTER 2018-11-09 08:20 | Day surgery (SDC) | payer MEDICAID ==
[2018-11-09 09:27] VITALS: TEMP 97.8
[2018-11-09 12:51] VITALS: BP 95/50
== END 2018-11-09 12:51 | disposition home or self-care (01) ==
LOC: ONC/OP 08:20
PROVIDERS: ATTEND Internal Medicine Gastroenterology
DX: K50.813 Crohn's disease of both small and large intestine with fistula (principal); Z79.52 Long term (current) use of systemic steroids; Z79.2 Long term (current) use of antibiotics; Z79.899 Other long term (current) drug therapy
CPT/HCPCS: 96413; 96415; Q0163

== ENCOUNTER 2018-12-28 08:07 | Day surgery (SDC) | payer OTHER ==
[2018-12-28] MEDS ORDERED: Sodium Chloride 0.9% 20 ML ONE (08:18)
[2018-12-28 09:41] VITALS: BP 106/59; TEMP 98.5
== END 2018-12-28 12:07 | disposition home or self-care (01) ==
LOC: ONC/OP 08:07
PROVIDERS: ATTEND Internal Medicine Gastroenterology
DX: K50.813 Crohn's disease of both small and large intestine with fistula (principal)
CPT/HCPCS: 96413; 96415; J7050; Q0163; Q5103

== ENCOUNTER 2019-02-10 13:47 | Inpatient (IN) | payer OTHER ==
[~2019-02-10 13:47] MED LIST changes: -Acetaminophen 500 MG TAB PO SCH; -INFLIXIMAB DYYB IVPB SCH; +ISOVUE-370 76%-LOCM 1 ML ONE; +Iopamidol 370 76% 50 ML VIAL FS ONE; -SODIUM CHLORIDE 0.9% IVPB SCH; -diphenhydrAMINE 25 MG CAP PO SCH
[2019-02-10 14:48] LABS: #Eosinphils 0.2 thou/uL (0.0-0.7); #Lymphocytes 1.9 thou/uL (1.20-3.40); #Monocytes 0.7 thou/uL (0.11-0.59); #Neutrophils 7.2 thou/uL (1.40-6.50); %Basophils 0.3 % (0.0-1.0); %Eosinophils 1.9 % (0.0-10.0); %Neutrophils 71.9 % (42.0-75.0); Hemoglobin 10.3 g/dL (12.0-16.0); Mean Corpuscular HGB CONC 30.6 g/dL (32.0-36.0); Mean Corpuscular Hemoglobin 24.6 pg (27.0-31.0); Mean Corpuscular Volume 80.5 fL (78.0-98.0); Mean Platelet Volume 7.5 fL (7.4-10.4); Platelet Count 462 thou/uL (130-400)
[2019-02-10 15:14] LABS: ALT (SGPT) 9 U/L (8-55); AST (SGOT) 11 U/L (5-34); Albumin 3.5 g/dL (3.5-5.0); Alkaline Phosphatase 81 U/L (40-150); Anion Gap 11 mmol/L (10-20); BUN (Urea Nitrogen) 11 mg/dL (7.0-18.7); Bilirubin, Total 0.6 mg/dL (0.2-1.2); Calc. Creatinine Clearance 0 mL/min (70-130); Calcium 8.7 mg/dL (7.8-10.44); Carbon Dioxide 26 mmol/L (22-29); Chloride 101 mmol/L (98-107); Estimated GFR-MDRD 75; Globulin 4.6 g/dL (2.4-3.5); Glucose 95 mg/dL (70-105); Lipase 18 U/L (8-78); Protein, Total 8.1 g/dL (6.0-8.3); Sodium 135 mmol/L (136-145)
[2019-02-10] MEDS ORDERED: Ondansetron PF 4 MG/2 ML Vial ONE (17:05)
[2019-02-10 17:37] LABS: Bilirubin Negative (Negative); Blood, Urine Trace (Negative); Clarity Turbid (Clear); Glucose, Urine (Dipstick) Normal (Negative); Leukocyte 500 Leu/uL (Negative); Nitrite Negative (Negative); Protein, Urine (Dipstick) 70 mg/dL (Neg-Trace); Urobilinogen Normal mg/dL (Less than 2); WBC/HPF Greater than 50 HPF (0-3)
[2019-02-10 17:38] LABS: Pregnancy Test - Urine (BHCG) Negative (Negative); Pregu Control Background? CLEAR/WHITE (CLR/WHITE); Pregu Control Bar Appear? YES (CONTROL BAR); Specific Gravity 1.036 (1.002-1.036)
[2019-02-10] MEDS ORDERED: cefTRIAXone\\ROCEPHIN 1 GM VIAL ONE (18:43)
--- NOTE | 2019-02-10 20:08 | CT ---
EXAM: CT ABDOMEN AND PELVIS HISTORY: Crohn's disease. Intermittent abdominal pain. COMPARISON: 11/03/2017 Procedure: Multiple contiguous axial images were obtained and a CT of the abdomen and pelvis with IV contrast. C oronal reformats were performed. FINDINGS: Lower Chest: within normal limits. Vessels: Normal caliber aorta Heart: Normal heart size. No significant pericardial fluid Abdomen: Portal vein:Patent Gallbladder: Surgically absent Liver: within normal limits. Pancreas: within normal limits. Spleen: within normal limits. Adrenals: within normal limits. Kidneys: Symmetric enhancement. No obstructive uropathy. Peritoneum: There is stranding of the lower abdominal mesentery likely due to edema with small amount s of fluid. Small pockets of extraluminal air are noted, the right lower quadrant. There are scattered enlarged mesenteric lymph nodes. Dynamic Etching Processor enlarged lymph node, the right lower quadra nt measures 0.9 x 0.8 cm. Bowel: Gastric mucosa and duodenum have overall normal appearance. The jejunal, proximal and mid ilea l loops are unremarkable. Distal ileal loops demonstrate bowel wall thickening with adjacent mesenteric stranding. At the level of distal ileum, there is extraluminal air with stranding of the m esenteric fat suggesting possible contained perforation. Well-formed abscess is not appreciated. There is a fluid-filled, dilated appendix measuring approximately 1 cm. Mesentery and Retroperitoneum: Scattered mesenteric lymph nodes as described above. Abdominal Wall: Enlarged bilateral inguinal lymph nodes are noted. Enlarged left inguinal lymph node measures 1.8 x 1.2 cm Pelvis: Reproductive Organs: Heterogeneous attenuation of the uterus. Grossly unremarkable adnexa. Pelvis: Small amount of fluid in the pelvis. Bladder: within normal limits. Bones: within normal limits. IMPRESSION: 1. Inflammatory change involving the distal ileum and terminal ileum, compatible with patient's histo ry of Crohn's disease. There are small pockets of extraluminal air which may represent contained perforation. Drainable abscess is not appreciated at this time. 2. Dilated fluid-filled appendix which may be reactive secondary to terminal ileitis. The possibility of an acutely inflamed appendix cannot be completely excluded. 3. Results of study discussed with Dr. Coffey 02/10/2019 8:03 PM Code CR
[2019-02-10] MEDS ORDERED: Piperacillin/Tazobactam 4.5 GM VIAL ONE (21:17)
[2019-02-10] MEDS ORDERED: Ondansetron PF 4 MG/2 ML Vial IVP PRN (22:41)
[2019-02-10] MEDS ORDERED: Acetaminophen 325 MG TAB PO PRN (22:41)
[2019-02-10] MEDS ORDERED: Ondansetron ODT 4 MG TAB SL PRN (22:41)
[2019-02-10] MEDS ORDERED: Sodium Chloride 0.9% 1,000 ML IV SCH (22:45)
[2019-02-10 22:49] VITALS: BMI 27.1
[2019-02-11] MEDS ORDERED: traMADol HCl 50 MG TAB PO PRN (00:15)
[2019-02-11] MEDS ORDERED: Sodium Chloride 0.9% 1,000 ML IV SCH (00:30)
[2019-02-11] MEDS ORDERED: Magnesium 2 GM/50 ML 2 GM in Premix Bag 1 BAG IVPB SCH (00:30)
[2019-02-11] MEDS ORDERED: cefTRIAXone\\ROCEPHIN 1 GM in Sodium Chloride 0.9% 100 ML IVPB SCH (01:00)
[2019-02-11] MEDS: Piperacillin/Tazobactam 3.375 GM in Sodium Chloride 0.9% 100 ML IVPB SCH ×4 (05:13→23:05)
[2019-02-11] MEDS ORDERED: Acetaminophen 500 MG TAB PO PRN (05:40)
[2019-02-11] MEDS ORDERED: Ondansetron PF 4 MG/2 ML Vial IVP PRN (05:40)
[2019-02-11] MEDS ORDERED: Ondansetron ODT 4 MG TAB PO PRN (05:40)
[2019-02-11 05:50] LABS: #Eosinphils 0.2 thou/uL (0.0-0.7); #Lymphocytes 1.6 thou/uL (1.20-3.40); #Monocytes 0.7 thou/uL (0.11-0.59); #Neutrophils 8.4 thou/uL (1.40-6.50); %Basophils 0.1 % (0.0-1.0); %Eosinophils 1.8 % (0.0-10.0); %Lymphocytes 14.6 % (21.0-51.0); %Monocytes 6.3 % (0.0-10.0); %Neutrophils 77.2 % (42.0-75.0); Hemoglobin 7.9 g/dL (12.0-16.0); Mean Corpuscular HGB CONC 30.9 g/dL (32.0-36.0); Mean Corpuscular Hemoglobin 24.9 pg (27.0-31.0); Mean Corpuscular Volume 80.7 fL (78.0-98.0); Mean Platelet Volume 7.5 fL (7.4-10.4); Platelet Count 351 thou/uL (130-400); Red Blood Cell (RBC) Count 3.15 mill/uL (4.20-5.40); White Blood Cell (WBC) Count 10.9 thou/uL (4.8-10.8)
[2019-02-11 06:06] LABS: ALT (SGPT) 7 U/L (8-55); AST (SGOT) 9 U/L (5-34); Albumin 2.5 g/dL (3.5-5.0); Alkaline Phosphatase 63 U/L (40-150); Anion Gap 9 mmol/L (10-20); BUN (Urea Nitrogen) 5 mg/dL (7.0-18.7); Bilirubin, Total 0.3 mg/dL (0.2-1.2); Calc. Creatinine Clearance 109 mL/min (70-130); Calcium 7.6 mg/dL (7.8-10.44); Carbon Dioxide 20 mmol/L (22-29); Chloride 109 mmol/L (98-107); Estimated GFR-MDRD Greater than 90; Globulin 3.6 g/dL (2.4-3.5); Glucose 87 mg/dL (70-105); Potassium 3.2 mmol/L (3.5-5.1); Protein, Total 6.1 g/dL (6.0-8.3); Sodium 135 mmol/L (136-145)
[2019-02-11] MEDS: Potassium Chloride 20 MEQ in Premix Bag 1 BAG IVPB SCH ×2 (07:54→10:08)
[2019-02-11] MEDS: Calcium Carbonate + Vit D 1 TAB PO SCH ×2 (07:55→17:19)
[2019-02-11] MEDS: Folic Acid 1 MG TAB PO SCH (07:56)
[2019-02-11] MEDS: Multivitamin W/ Minerals 1 TAB PO SCH (07:56)
[2019-02-11] MEDS ORDERED: D5 1/2 NS w/40 mEq KCL 1,000 ML IV SCH (08:15)
[2019-02-11] MEDS ORDERED: Pantoprazole 40 MG GRANULES PACKET PO SCH (09:00)
--- NOTE | 2019-02-11 11:14 | RAD ---
2 VIEWS ABDOMEN: Date: 02/11/19 INDICATION: Concern for air leak with history of Crohn's. COMPARISON: CT abdomen and pelvis dated 02/20/19. FINDINGS: No large amount of pneumoperitoneum is present. The visualized bowel gas pattern is unobstructed. Ent venus contrast is seen at the level of the colon. Gallbladder surgically absent. Lung bases are clear. No acute osseous abnormality is evident. IMPRESSION: No large volume of free air demonstrated within the abdomen. Small pockets of suspected extraluminal gas within the right lower quadrant mesentery on the prior CT evaluation of 02/20/19 are not as well as appreciated as on the comparison CT evaluation. No obstructive change is seen involving the small or large bowel. POS: [facility]
--- NOTE | 2019-02-11 11:39 | CON ---
DATE OF CONSULTATION: CHIEF COMPLAINT: Right lower quadrant abdominal pain. HISTORY OF PRESENT ILLNESS: This is a 38-year-old female with a 6-year history of Crohn disease, being followed by Dr. Rodriguez in GI. She reports a 1-month history of increasing abdominal pain. No vomiting. She has been having loose bowel movements. She takes Inflectra for her Crohn's. She denies any rectal bleeding. She has had no fever. PAST MEDICAL HISTORY: Significant for Crohn's. PAST SURGICAL HISTORY: She has had a cholecystectomy. She has had anal fistulotomy. ALLERGIES: SHE HAS NO KNOWN DRUG ALLERGIES. SOCIAL HISTORY: She is single. 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 No tobacco or alcohol. MEDICATIONS: Inflectra. FAMILY HISTORY: Noncontributory. PHYSICAL EXAMINATION: VITAL SIGNS: Temperature 97.8, pulse 66, and blood pressure 80/45. GENERAL: She is awake, alert, sitting up, in no apparent distress. HEENT: Unremarkable. LUNGS: Clear. HEART: Regular rate and rhythm. ABDOMEN: Soft. She is tender in the right lower quadrant. EXTREMITIES: Unremarkable. LABORATORY DATA: Her white count is 10.9, H and H of 7.9 and 25, and platelet count 351. Electrolytes; her CO2 is 20, creatinine 0.7. Urinalysis; 11 to 20 red cells, greater than 50 white cells. IMAGING DATA: She had CT scan of abdomen and pelvis, which showed active Crohn's, borderline appendix dilatation, some small areas of punctate free air in the region consistent with a small contained perforation, but no abscess cavity that is drainable. ASSESSMENT: Crohn's exacerbation. PLAN: IV antibiotics. GI consultation. Job ID: [id number]
[2019-02-11] MEDS ORDERED: Dextrose 5 %-0.45 % NaCl 1,000 ML IV SCH (12:45)
[2019-02-11] MEDS ORDERED: Bacteriostatic Water 30 ML VIAL FS PRN (18:09)
[2019-02-11] MEDS: methylPREDNISolone Sod Succ 40 MG VIAL IVP SCH ×2 (18:26→23:06)
--- NOTE | 2019-02-11 19:00 | HP ---
PRIMARY CARE PHYSICIAN: Anand Pollard MD CHIEF COMPLAINT: Abdomen pain. 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 States she is drinking increased water, but does still feel Additionally, has had worsening diarrhea, loose stools over the last month with worsening abdomen pain. The patient has longstanding history of Crohn disease with perineum to vaginal fistulas, which are chronic. The patient had incision and drainage approximately one month ago to labia minora by myself in office, given antibiotics. The patient is compliant with Inflectra by Gastroenterology for Crohn disease. Has had steroid burst in the past as well. States she has some fatigue, verbalizes understanding regarding contained perforated bowel on imaging and right lower quadrant, where pain is located. Denies any current muscle cramps given hypokalemia, chest pain, or shortness of breath. Review of past medical, social, surgical history, no known drug allergies, Crohn disease, anal fistula, amenorrhea, folic acid deficiency, vitamin B12 deficiency , iron deficiency, anemia of chronic disease, elevated blood glucose level on steroids, taking Inflectra 100 mg IV q.8 weeks. Laparoscopic cholecystectomy in 2015, colonoscopy with Dr. Rodriguez in 2012, in 2014. Currently nonsmoker. . 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 Grandmother with diabetes. Mother with hypertension. She had vital signs; temperature of 98.1; pulse of 83; respiratory rate of 16; oxygen saturation 100 % on room air, blood pressure of 76/45. Specific gravity on UA 1.03, positive protein, positive trace blood, positive white blood cells, positive red blood cells, positive squamous cells, positive leukocyte esterase, negative nitrites. This morning, sodium 135, potassium 3.2, CO2 of 20, creatinine of 0.7, calcium of 7.6, ALT of 7, AST of 19, lipase on admission 18, albumin of 2.5. White blood cell count of 10.9, hemoglobin of 7.9, platelet count of 351, neutrophil percent of 77. Abdomen and pelvis CT showed inflammatory changes of distal and terminal ileum compatible with Crohn disease, small pockets of extraluminal air, which are contained. No drainable abscess is present. Dilated air fluid filled appendix. PHYSICAL EXAMINATION: GENERAL: The patient is alert and oriented, in no acute distress. HEENT: Head is normocephalic and atraumatic. Extraocular movements are intact. Sclerae are white. NECK: Supple. Oral mucosa is moist following two bags of IV fluids from emergency department and floor status. HEART: Regular rate and rhythm at time of exam. No murmurs auscultated. LUNGS: Clear to auscultation bilaterally. No rubs or wheezes. ABDOMEN: Tender throughout, worst to right lower quadrant without rebound or guarding. EXTREMITIES: Lower extremities without cyanosis or edema. NEUROLOGIC: The patient is alert and oriented x3. No focal deficits. Speech is normal. ASSESSMENT AND PLAN: Crohn's flare; hypokalemia; hypotension; protein malnutrition, present on admission; anemia of chronic disease, present on admission; dehydration; contained perforated terminal ileum with inflamed appendix. The patient on low dose of the Rocephin. Awaiting GI consultation. No current need for surgical management. Potassium is being replaced, IV fluids regarding hypotension. Followed up [facility] regarding change in blood pressure down. No signs of any free air in abdomen other than what was noted on CT scan. The patient remains largely asymptomatic in bed regarding hypotension, likely secondary to the patient's hypoalbuminemia from malnutrition as the patient has chronic perineal wounds. The patient states she is actually unable to fully heal incision or drainage site from last month as well. Dehydration improved with IV fluids as above. We will wait GI's recommendations. SCDs for deep venous thrombosis prophylaxis. Continuing vitamin supplementation. Initiated Ensure High Protein t.i.d. Job ID: [id number] [facility]
[2019-02-11] MEDS: cefTRIAXone\\ROCEPHIN 2 GM in Sodium Chloride 0.9% 100 ML IVPB SCH (21:19)
--- NOTE | 2019-02-12 02:22 | CON ---
DATE OF CONSULTATION: 02/11/2019 REQUESTING PHYSICIAN: Dr. Pollard. REASON FOR CONSULTATION: Crohn disease flare. HISTORY OF PRESENT ILLNESS: Mackenzie Gardner is a 38-year-old woman with Crohn disease followed by my GI colleague, Dr. Kwabena Rodriguez. 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 She presented with perianal disease back in 2012 and abscess requiring surgical drainage at that time. Crohn disease was confirmed based on ileal ulcer biopsies showing granulomas. [facility] Crohn diagnostic panel was also suggestive of Crohn's. She has had recurrent perianal fistulas and abscesses and has been seen by Dr. Yaakov mascorro in [place]. She took Humira from September 2013 until 2015, which controlled the disease pretty well, but she stopped that in 2015 due to loss of insurance. She finally got back on biologic therapy with Inflectra started in May 2018. She clinically improved with the Inflectra and gained about 40 pounds. Recently, Dr. Rodriguez adjusted the dose appropriately upward to maintain 5 mg/kg dosing with all of the weight gain. She says her last infusion was about 5 weeks ago and next infusion is planned for about 3 weeks from now. She saw Dr. Rodriguez back in December and she was still found to have elevated CRP as well as anemia and B12 deficiency. Hemoglobin was 10.7 at that time. She says that for about the past month she has had daily cramping abdominal pain. This is primarily in the right lower quadrant, but will often become more generalized. It is essentially constant, but gets a lot worse when she eats. There has been no nausea or vomiting, really no diarrhea. Bowel movements have been twice per day and there has been no blood in the stool. She denies any fever. Nothing particularly changed over the past couple of days, except the pain remained fairly severe and so she presented to the emergency department. A CT scan yesterday demonstrated ileal thickening and stranding as before, but also a couple of small foci of potential free air in the area. No significant pneumoperitoneum. She was evaluated by Dr. Veliz earlier today and he agrees that there is no drainable abscess or cavity. The patient was started on the IV antibiotics. She is tolerating liquids today but not really hungry for more solid food. She has no other complaints aside from the continued abdominal discomfort. PAST MEDICAL HISTORY: Crohn disease with ileal and perianal involvement, cholecystectomy, anal fistulotomy. ALLERGIES: NO KNOWN DRUG ALLERGIES. OUTPATIENT MEDICATIONS: Inflectra 5 mg/kg every 8 weeks. FAMILY HISTORY: Noncontributory. 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 No tobacco or alcohol use. She is a single mother. PHYSICAL EXAMINATION: VITAL SIGNS: Temperature 98.7, pulse 76, blood pressure 132/73, 100% oxygen saturation on room air. GENERAL: A 38-year-old woman sitting up on the edge of the bed, fairly comfortable, in no distress, appearing nontoxic. SKIN: No jaundice, no rashes were palpable. EYES: No scleral icterus. Extraocular movements intact. ENT: Mucous membranes moist. No oral lesions. LYMPH: No submandibular or supraclavicular lymphadenopathy. THYROID: Nontender to palpation. HEART: Regular rate and rhythm. LUNGS: Clear to auscultation bilaterally. ABDOMEN: Nondistended. Bowel sounds are present. The abdomen is soft. There is some tenderness to palpation in the right lower quadrant, but no guarding or rebound tenderness. EXTREMITIES: No peripheral edema. VESSELS: Radial pulses 2+ bilaterally. NEUROLOGIC: Cranial nerves 2 through 12 intact bilaterally. No focal deficits. LABORATORY STUDIES: Hemoglobin 7.9, WBC 10.9, platelets 351. Sodium 135, potassium 3.2, BUN 5, creatinine 0.71, lipase 18. LFTs all normal with total bilirubin 0.3, alkaline phosphatase 63, AST 9, ALT 7. Urinalysis shows greater than 50 wbc's. Urine test negative. ASSESSMENT AND PLAN: 1. Crohn disease with ileal and perianal involvement, current flare. 2. Small contained ileal perforation. 3. Urinary tract infection. I appreciate the assistance of Dr. Veliz who has already evaluated the patient today. The patient has no drainable abscess or fluid collection. He has recommended treatment with antibiotics. The patient is currently getting IV Zosyn and did receive ceftriaxone as well. This should certainly cover her urinary tract infection as well. I would advise going ahead and adding IV steroids while she is inpatient. We will start her on IV Solu-Medrol 40 mg q.6 hours. Anticipate on hospital discharge. Will transition to oral steroids with prednisone 40 mg daily, and a plan to taper this off over the course of 28 days. In the longer term, Dr. Rodriguez's plan had been to check infliximab trough levels and antibodies. This should be done prior to her next Inflectra infusion later this month. Further long-term management, whether increasing the dose of in Flector or switching to another biologic, will probably depend in large part upon those results. Anticipate the patient can be safely discharged home on oral antibiotics and oral steroid taper. Once her pain is doing better and she is tolerating her diet. Job ID: [id number]
[2019-02-12 05:30] LABS: #Monocytes 0.1 thou/uL (0.11-0.59); #Neutrophils 8.3 thou/uL (1.40-6.50); %Eosinophils 0.1 % (0.0-10.0); %Lymphocytes 10.5 % (21.0-51.0); %Monocytes 0.7 % (0.0-10.0); %Neutrophils 88.7 % (42.0-75.0); Hemoglobin 8.6 g/dL (12.0-16.0); Mean Corpuscular Hemoglobin 25.2 pg (27.0-31.0); Mean Corpuscular Volume 81.3 fL (78.0-98.0); Mean Platelet Volume 7.7 fL (7.4-10.4); Platelet Count 371 thou/uL (130-400); Red Blood Cell (RBC) Count 3.43 mill/uL (4.20-5.40); White Blood Cell (WBC) Count 9.4 thou/uL (4.8-10.8)
[2019-02-12] MEDS: Piperacillin/Tazobactam 3.375 GM in Sodium Chloride 0.9% 100 ML IVPB SCH ×4 (05:39→23:46)
[2019-02-12] MEDS: methylPREDNISolone Sod Succ 40 MG VIAL IVP SCH ×4 (05:39→23:46)
[2019-02-12 05:52] LABS: ALT (SGPT) Less than 7 U/L (8-55); AST (SGOT) 7 U/L (5-34); Alkaline Phosphatase 75 U/L (40-150); Anion Gap 10 mmol/L (10-20); BUN (Urea Nitrogen) 5 mg/dL (7.0-18.7); Bilirubin, Total 0.3 mg/dL (0.2-1.2); Calc. Creatinine Clearance 105 mL/min (70-130); Calcium 8.5 mg/dL (7.8-10.44); Carbon Dioxide 22 mmol/L (22-29); Chloride 106 mmol/L (98-107); Estimated GFR-MDRD 87; Glucose 131 mg/dL (70-105); Potassium 4.1 mmol/L (3.5-5.1); Sodium 134 mmol/L (136-145)
[2019-02-12] MEDS: Folic Acid 1 MG TAB PO SCH (08:51)
[2019-02-12] MEDS: Multivitamin W/ Minerals 1 TAB PO SCH (08:51)
[2019-02-12] MEDS: Calcium Carbonate + Vit D 1 TAB PO SCH ×2 (08:51→17:45)
--- NOTE | 2019-02-12 13:12 | PRG ---
DATE OF SERVICE: 02/12/2019 SUBJECTIVE: Ms. Gardner is feeling about the same. She is able to tolerate food, but every time she eats, she gets significant cramping primarily in the right lower quadrant. Minimal nausea, no vomiting, but oral intake has not been great because of the postprandial cramps. She has had a couple of normal-appearing bowel movements. No bleeding. IV steroids were started yesterday evening. OBJECTIVE: VITAL SIGNS: Temperature 97.9, pulse 56, blood pressure 76/41, 97% oxygen saturation on room air. GENERAL: No acute distress. HEART: Regular rate and rhythm. LUNGS: Clear to auscultation bilaterally. ABDOMEN: Nondistended. Bowel sounds present. Soft. Tender to palpation in the right lower quadrant. No guarding or rebound tenderness. EXTREMITIES: No peripheral edema. LABORATORY STUDIES: WBC 9.4, hemoglobin 8.6, platelets 371. Sodium 134, potassium 4.1, BUN 5, creatinine 0.74. LFTs all remain normal with total bilirubin 0.3, alkaline phosphatase 75, AST 7, ALT less than 7, albumin is 3.0. ASSESSMENT AND PLAN: 1. Crohn's ileitis, active despite treatment with Inflectra, now with evidence of small contained perforation. 2. Right lower quadrant pain, secondary to Crohn's ileitis. The patient continues on IV Zosyn and ceftriaxone. IV steroids were started yesterday evening. Advised continuing current therapy for now. Advance diet as she can tolerate. Hopefully, we will see improvement in abdominal cramping pain within the next day or two, then anticipate she can be discharged on oral steroid taper to follow up with Dr. Rodriguez. She is going to need infliximab trough level and antibodies drawn prior to her next Inflectra infusion, which is coming up in a few weeks. Job ID: [id number]
--- NOTE | 2019-02-12 16:53 | PRG ---
DATE OF SERVICE: 02/12/2019 SUBJECTIVE: The patient reports that she is still having crampy abdominal pain, it seems to be worse when she tries to eat anything. She has been able to drink some fluids. It is not any worse than it has been. OBJECTIVE: VITAL SIGNS: On examination, her temperature is 97.9, pulse 56, and blood pressure 80/41. GENERAL: She is awake, alert, up in a chair. ABDOMEN: Her abdomen is soft, mild tenderness. LABORATORY DATA: Her white count is 9.4, H and H 8.6 and 27, and platelet count of 371. ASSESSMENT: Crohn exacerbation. PLAN: She just started steroids. At some point, if she does not show improvement, we will need to repeat the CT. Job ID: [id number]
[2019-02-12] MEDS: cefTRIAXone\\ROCEPHIN 2 GM in Sodium Chloride 0.9% 100 ML IVPB SCH (20:35)
--- NOTE | 2019-02-12 22:42 | PRG ---
DATE OF SERVICE: 02/12/2019 HISTORY OF PRESENT ILLNESS: The patient still has some abdominal pain, tolerating some liquids well, ambulates to restroom, tolerating steroid in IV antibiotics well. Eager to return to her new job. Verbalizes understanding regarding returning to soon. States when she did try to eat something more meaningful, she did have some abdominal pain and some nausea. Temperature this morning of 97.8, pulse of 60, respiratory rate of 15, oxygen saturation 100% on room air, and blood pressure 92/58. LABORATORY WORK: White blood count 9.4, neutrophil percent of 88, and hemoglobin of 8.6. Potassium of 4.1, sodium 134, calcium of 8.5, and albumin of 3.0. PHYSICAL EXAMINATION: GENERAL: The patient is alert and oriented. No acute distress. HEENT: Head is normocephalic and atraumatic. Extraocular movements are intact. Sclerae are clear. Mucosa is moist. NECK: Supple. HEART: Regular rate and rhythm at the time of exam. No murmurs auscultated. LUNGS: Clear to auscultation bilaterally. No rubs or wheezes. ABDOMEN: Tender throughout. No formal rebound or guarding. EXTREMITIES: Lower extremities without cyanosis or edema. NEUROLOGIC: The patient is alert and oriented x3. No focal deficits. Speech is normal. ASSESSMENT AND PLAN: 1. Crohn's flare with ileitis, contained perforation. 2. Hypoalbuminemia. 3. Hypotension. 4. Anemia of chronic disease. 5. Hypokalemia, successfully replaced patient's electrolytes, continued on IV antibiotics and IV steroids. The patient to be titrated on Inflectra by Gastroenterology over the fdc. Hopefully, we will be able to transition patient to orals and have her tolerate some food and able to return home on steroids and antibiotics continued. General Surgery and Gastroenterology are following. I appreciate their input. Job ID: [id number]
[2019-02-13] MEDS: Piperacillin/Tazobactam 3.375 GM in Sodium Chloride 0.9% 100 ML IVPB SCH ×4 (06:22→23:21)
[2019-02-13] MEDS: methylPREDNISolone Sod Succ 40 MG VIAL IVP SCH ×4 (06:22→23:21)
[2019-02-13] MEDS: Folic Acid 1 MG TAB PO SCH (09:08)
[2019-02-13] MEDS: Calcium Carbonate + Vit D 1 TAB PO SCH ×2 (09:08→17:20)
[2019-02-13] MEDS: Multivitamin W/ Minerals 1 TAB PO SCH (09:08)
--- NOTE | 2019-02-13 12:18 | PRG ---
DATE OF SERVICE: 02/13/2019 SUBJECTIVE: Ms. Gardner says she is feeling about the same. She continues to have both random and postprandial right lower quadrant discomfort. She has had two normal appearing bowel movements today. No vomiting. OBJECTIVE: VITAL SIGNS: Temperature 97.5, pulse 66, blood pressure 99/56, 100% oxygen saturation on room air. GENERAL: In no acute distress. HEART: Regular rate and rhythm. LUNGS: Clear to auscultation bilaterally. ABDOMEN: Bowel sounds are present. Soft. Tender to palpation in the right lower quadrant. No guarding or rebound tenderness. EXTREMITIES: No peripheral edema. ASSESSMENT AND PLAN: 1. Crohn's ileitis, active despite treatment with Inflectra. 2. Contained ileal perforation, secondary to active Crohn's ileitis. 3. Right lower quadrant pain, today is now day 3 of IV steroids. She is tolerating her diet, but pain remains an issue. We will continue the IV steroids today. Anticipate she should be able to be discharged in the next day or two on an oral steroid taper for close followup with Dr. Rodriguez, and infliximab trough level and antibodies drawn prior to her next Inflectra infusion in the next few weeks. Job ID: [id number]
--- NOTE | 2019-02-13 15:45 | PRG ---
DATE OF SERVICE: 02/13/2019 HISTORY OF PRESENT ILLNESS: The patient struggled with dinner last night, worsening abdominal pain, marginal fluid intake, increased pain with movement. Verbalized understanding regarding potential for continuation of IV therapies today and if continuation of intermittent diet and pain, may look at repeat CT scan prior to discharge. No new complaints. PHYSICAL EXAMINATION: VITAL SIGNS: Temperature of 97.7, pulse of 61, respiratory rate of 18, oxygen saturation 100% on room air, blood pressure of 85/52. GENERAL: The patient is alert, oriented, in no acute distress. HEENT: Head is normocephalic, atraumatic. Extraocular movements are intact. Sclerae are white. Oral mucosa is moist. NECK: Supple. HEART: Regular rate and rhythm. No murmurs are auscultated. LUNGS: Clear to auscultation bilaterally. No rubs or wheezes. ABDOMEN: Right lower quadrant tenderness without rebound or guarding. Positive bowel sounds throughout. EXTREMITIES: Lower extremities without cyanosis or edema. NEUROLOGIC: The patient is alert and oriented. No focal deficits. Speech is normal. ASSESSMENT AND PLAN: Crohn's flare, protein malnutrition, anemia of chronic disease, hypotension, contained perforated ileum. Continuing IV antibiotics and steroids. IV fluids have been discontinued at this point in time. If the patient does not tolerate diet well today, may need a bolus therapy. If the patient's pain and diet are much improved tomorrow, may look at CT scan. We will follow up on surgery's recommendation as well. Hopefully, the patient will be able to transition in the next 1 to 2 days for orals and then discharge home for continued antibiotic and steroid therapy. Job ID: [id number]
[2019-02-13] MEDS: cefTRIAXone\\ROCEPHIN 2 GM in Sodium Chloride 0.9% 100 ML IVPB SCH (20:46)
[2019-02-14 05:03] LABS: #Lymphocytes 1.5 thou/uL (1.20-3.40); #Monocytes 0.5 thou/uL (0.11-0.59); #Neutrophils 14.3 thou/uL (1.40-6.50); %Basophils 0.1 % (0.0-1.0); %Eosinophils 0.2 % (0.0-10.0); %Lymphocytes 8.9 % (21.0-51.0); %Monocytes 2.8 % (0.0-10.0); Hemoglobin 7.9 g/dL (12.0-16.0); Mean Corpuscular HGB CONC 30.7 g/dL (32.0-36.0); Mean Corpuscular Hemoglobin 24.8 pg (27.0-31.0); Mean Corpuscular Volume 80.8 fL (78.0-98.0); Mean Platelet Volume 7.9 fL (7.4-10.4); Platelet Count 379 thou/uL (130-400); RBC Distribution Width 14.4 % (11.5-14.5); Red Blood Cell (RBC) Count 3.19 mill/uL (4.20-5.40); White Blood Cell (WBC) Count 16.2 thou/uL (4.8-10.8)
[2019-02-14 05:21] LABS: ALT (SGPT) 21 U/L (8-55); AST (SGOT) 27 U/L (5-34); Albumin 2.9 g/dL (3.5-5.0); Alkaline Phosphatase 96 U/L (40-150); Anion Gap 9 mmol/L (10-20); BUN (Urea Nitrogen) 12 mg/dL (7.0-18.7); Bilirubin, Total 0.3 mg/dL (0.2-1.2); Calc. Creatinine Clearance 109 mL/min (70-130); Calcium 8.7 mg/dL (7.8-10.44); Carbon Dioxide 25 mmol/L (22-29); Chloride 106 mmol/L (98-107); Estimated GFR-MDRD Greater than 90; Globulin 3.6 g/dL (2.4-3.5); Glucose 133 mg/dL (70-105); Potassium 4.2 mmol/L (3.5-5.1); Protein, Total 6.5 g/dL (6.0-8.3); Sodium 136 mmol/L (136-145)
[2019-02-14] MEDS: Piperacillin/Tazobactam 3.375 GM in Sodium Chloride 0.9% 100 ML IVPB SCH ×3 (05:30→18:05)
[2019-02-14] MEDS: methylPREDNISolone Sod Succ 40 MG VIAL IVP SCH ×3 (05:31→18:05)
[2019-02-14] MEDS: Multivitamin W/ Minerals 1 TAB PO SCH (09:42)
[2019-02-14] MEDS: Folic Acid 1 MG TAB PO SCH (09:42)
[2019-02-14] MEDS: Calcium Carbonate + Vit D 1 TAB PO SCH ×2 (09:42→17:59)
[2019-02-14 15:37] VITALS: BP 80/53; TEMP 97.2
--- NOTE | 2019-02-14 16:20 | CT ---
CT ABDOMEN AND PELVIS WITH CONTRAST: Axial tomograms were obtained with IV and oral contrast. INDICATION: Crohn's disease. Ileus perforation. COMPARISON: Comparison is made to recent CT of 02/10/2019. FINDINGS: Lung bases clear. Liver, spleen, and pancreas unremarkable. Kidneys unremarkable. Review of the intestinal track again reveals mural thickening involving the distal and terminal ileum consistent with the history of Crohn's disease. The extraluminal gas pockets on the prior study are less pronounced today. There continues to be a single tiny extraluminal gas pocket which may arise from a small diverticulum from this inflamed ileum. It may represent a small confined perforation as noted previously, although there is decrease in the extraluminal gas and there is a suggestion of in gested contrast extending from the lumen to this tiny pocket suggesting an intact diverticulum. The appendix is slightly less prominent today than on the prior study. There is contrast seen in the proximal appendix today. Mural thickening at the cecum is again noted with luminal narrowing. The transverse and upper left colon are unremarkable. There is luminal narrowing and mural thickenin g of the distal left colon and sigmoid which may be exacerbated by nondistention. A small amount of free fluid in the deep pelvis on the right is similar in appearance to the prior ex am. A prominent uterus is again noted. IMPRESSION: Continued mural thickening and luminal narrowing of the distal and terminal ileum consistent with the history of Crohn's disease. A tiny extraluminal gas pocket is seen today adjacent to this inflamed distal ileum at the location noted on the prior study. There has been decrease in the tiny gas pocke t since the prior study. This small pocket today may reside within a tiny diverticulum as discussed above. Other findings as noted above appear stable. POS: PRECIOUS
--- NOTE | 2019-02-14 17:09 | PRG ---
DATE OF SERVICE: 02/14/2019 SUBJECTIVE: Ms. Gardner is feeling a bit better today. Abdominal pain is a bit less. She is still tolerating her diet. No diarrhea or fever. She had a repeat CT of the abdomen and pelvis today. This shows essentially not much change. She continues to have mural thickening in the terminal ileum; single small extraluminal pocket of gas, it is smaller than previously, certainly no worsening. The patient is eager to go home if possible. OBJECTIVE: VITAL SIGNS: Temperature 97.2, pulse 47, blood pressure 80/53, and 97% oxygen saturation on room air. GENERAL: In no acute distress, sitting up in the edge of the bed comfortably. HEART: Regular rate and rhythm. LUNGS: Clear to auscultation bilaterally. ABDOMEN: Bowel sounds are present. Soft. Some tenderness to palpation in the right lower quadrant, but no guarding or rebound tenderness. EXTREMITIES: No peripheral edema. LABORATORY STUDIES: WBC 16.2, hemoglobin 7.9, platelets 379. Sodium 136, potassium 4.2, BUN 12, creatinine 0.71. ASSESSMENT AND PLAN: 1. Crohn ileitis, active despite treatment with Inflectra. 2. Contained ileal perforation, secondary to active Crohn ileitis, no interval worsening on today's scan. 3. Right lower quadrant pain. The patient is clinically stable and afebrile. Today is day 4 of IV steroids. I discussed the CT results with the patient. She is going to need imaging followup in the coming months, but at this time, I think she should be okay for discharge home from a GI perspective. I would keep her on steroids, switch to oral on discharge. I would keep her at prednisone 40 mg daily until GI Clinic follow up in the next [address] Rodriguez or his PA. At that time, also they can assure that infliximab trough level and antibodies can be drawn prior to her next Inflectra infusion in the next few weeks. Steroids will probably be tapered down at that point as well, depending on the patient's clinical course. Job ID: [id number]
--- NOTE | 2019-02-15 11:29 | DIS ---
DATE OF ADMISSION: 02/10/2019 DATE OF DISCHARGE: 02/14/2019 CHIEF COMPLAINT: Abdomen pain. HISTORY OF PRESENT ILLNESS AND HOSPITAL COURSE: The patient found to have likely small perforation of terminal ileum on CT scan following emergency department visit for the abdomen pain. Has known Crohn's disease on Inflectra under the care of Dr. Rodriguez on an outpatient basis. 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 The patient was extremely dehydrated on admission and was rehydrated with IV fluids. Electrolytes replaced including potassium. Repeat CT exam for continued slow diet trend and abdomen pain showed this free air actually may be inside of the lumen of a diverticulum, but remains stable and is certainly walled off on exam. Dr. Veliz did not recommend any surgical interventions to treat medically. Dr. Alf reyna while inpatient agreed. The patient trended on IV antibiotics. Discharged on Cipro and Flagyl and steroid burst to help better maintain control of Crohn's flare. DISCHARGE DIAGNOSES: Include; 1. Crohn's flare, resolved. 2. Hypokalemia. 3. Hypotension secondary to hypoalbuminemia from protein malnutrition from chronic disease. 4. Anemia of chronic disease. 5. Dehydration, resolved, contain ileum, free air. DISCHARGE CONDITION: Fair. DISCHARGE DIET: High-protein supplemental shakes as tolerated. DISCHARGE ACTIVITY: As tolerated. FOLLOWUP: Follow up with myself, Dr. Anand Pollard in the next 7 to 10 days. Follow up with Dr. Rodriguez on an outpatient basis as planned to titrate Inflectra. DISCHARGE MEDICATIONS: Include; 1. Cipro 500 mg twice daily. 2. Flagyl 500 mg 3 times daily. 3. Zofran 4 mg p.o. q.6 hours p.r.n. for nausea. 4. Steroid taper starting with 40 mg tapering down to 10 mg, changing every 3 days. 5. Continuing on the patient's injected Inflectra with Gastroenterology q.8 weeks. Job ID: [id number]
== END 2019-02-14 19:08 | disposition home or self-care (01) | DRG 385 ==
LOC: ERS 13:47 → SURG A 20:39
PROVIDERS: ADMIT Family Medicine; ATTEND Family Medicine
DX: K50.018 Crohn's disease of small intestine with other complication (principal); K63.1 Perforation of intestine (nontraumatic); E46 Unspecified protein-calorie malnutrition; N39.0 Urinary tract infection, site not specified; D63.8 Anemia in other chronic diseases classified elsewhere; E86.0 Dehydration; I95.9 Hypotension, unspecified; E87.6 Hypokalemia; L73.2 Hidradenitis suppurativa; L98.8 Other specified disorders of the skin and subcutaneous tissue; K37 Unspecified appendicitis; Z90.49 Acquired absence of other specified parts of digestive tract; Z68.27 Body mass index [BMI] 27.0-27.9, adult
CPT/HCPCS: 36415; 74019; 74177; 80053; 81003; 81015; 81025; 83690; 85025; 96361; 96365; 96367; 96375; J0696; J2405; J2543; J2920; J3475; J3480; J3490; Q9966; Q9967

== ENCOUNTER 2019-04-08 13:42 | Emergency (ER) | payer OTHER ==
[2019-04-08 14:11] LABS: Bacteria/HPF 1+ HPF (None Seen); Bilirubin Negative (Negative); Blood, Urine Trace (Negative); Clarity Turbid (Clear); Glucose, Urine (Dipstick) Normal (Negative); Leukocyte 500 Leu/uL (Negative); Nitrite Negative (Negative); Pregnancy Test - Urine (BHCG) Negative (Negative); Pregu Control Background? CLEAR/WHITE (CLR/WHITE); Pregu Control Bar Appear? YES (CONTROL BAR); Protein, Urine (Dipstick) 10 mg/dL (Neg-Trace); Specific Gravity 1.023 (1.002-1.036); Urobilinogen Normal mg/dL (Less than 2); WBC/HPF Greater than 50 HPF (0-3)
== END 2019-04-08 14:30 | disposition home or self-care (01) ==
LOC: ERS 13:42
DX: N39.0 Urinary tract infection, site not specified (principal); K50.90 Crohn's disease, unspecified, without complications
CPT/HCPCS: 81003; 81015; 81025; 87086; 99283

== ENCOUNTER 2019-05-08 08:10 | Day surgery (SDC) | payer OTHER ==
[~2019-05-08 08:10] MED LIST changes: +Acetaminophen 500 MG TAB PO SCH; +INFLIXIMAB DYYB IVPB SCH; -ISOVUE-370 76%-LOCM 1 ML ONE; -Iopamidol 370 76% 50 ML VIAL FS ONE; +SODIUM CHLORIDE 0.9% IVPB SCH; +diphenhydrAMINE 25 MG CAP PO SCH
[2019-05-08 08:42] VITALS: BP 98/56; TEMP 98.4
[2019-05-08] MEDS ORDERED: FLU VACC QS2019-20(6MOS UP)/PF 60 MCG/0.5 ML SYRINGE IM ONE (08:45)
[2019-05-08] MEDS ORDERED: Sodium Chloride 0.9% 20 ML ONE (09:09)
== END 2019-05-08 13:06 | disposition home or self-care (01) ==
LOC: ONC/OP 08:10
PROVIDERS: ATTEND Internal Medicine Gastroenterology
DX: K50.813 Crohn's disease of both small and large intestine with fistula (principal)
CPT/HCPCS: 96413; 96415; J7050; Q0163; Q5103

== ENCOUNTER 2019-06-26 08:05 | Day surgery (SDC) | payer OTHER ==
[~2019-06-26 08:05] MED LIST changes: +diphenhydrAMINE 50 MG/ML VIAL IVP PRN
[2019-06-26] MEDS ORDERED: Sodium Chloride 0.9% 20 ML ONE (08:16)
[2019-06-26] MEDS ORDERED: INFLIXIMAB DYYB IVPB SCH (09:45)
[2019-06-26] MEDS ORDERED: SODIUM CHLORIDE 0.9% IVPB SCH (09:45)
[2019-06-26 12:22] VITALS: BP 97/47; TEMP 98.3
== END 2019-06-26 16:05 | disposition home or self-care (01) ==
LOC: ONC/OP 08:05
PROVIDERS: ATTEND Internal Medicine Gastroenterology
DX: K50.813 Crohn's disease of both small and large intestine with fistula (principal)
CPT/HCPCS: 96375; 96413; 96415; J7050; Q0163; Q5103

== ENCOUNTER 2019-07-14 10:05 | Inpatient (IN) | payer OTHER ==
[2019-07-14 10:57] LABS: #Basophils 0.1 thou/uL (0.0-0.2); #Eosinphils 0.2 thou/uL (0.0-0.7); #Lymphocytes 1.3 thou/uL (1.20-3.40); #Monocytes 0.5 thou/uL (0.11-0.59); #Neutrophils 5.9 thou/uL (1.40-6.50); %Basophils 1.6 % (0.0-1.0); %Eosinophils 2.5 % (0.0-10.0); %Lymphocytes 16.6 % (21.0-51.0); %Monocytes 6.1 % (0.0-10.0); %Neutrophils 73.2 % (42.0-75.0); Hemoglobin 9.9 g/dL (12.0-16.0); Mean Corpuscular HGB CONC 31.3 g/dL (32.0-36.0); Mean Corpuscular Volume 79.9 fL (78.0-98.0); Mean Platelet Volume 8.2 fL (7.4-10.4); Platelet Count 350 thou/uL (130-400); RBC Distribution Width 16.3 % (11.5-14.5); Red Blood Cell (RBC) Count 3.96 mill/uL (4.20-5.40)
[2019-07-14 11:07] LABS: BHCG - Serum Negative (NEGATIVE); Pregs Control Background? CLEAR/WHITE (CLR/WHITE); Pregs Control Bar Appear? YES (CONTROL BAR)
[2019-07-14 11:11] LABS: ALT (SGPT) Less than 7 U/L (8-55); AST (SGOT) 9 U/L (5-34); Albumin 3.5 g/dL (3.5-5.0); Alkaline Phosphatase 84 U/L (40-110); Anion Gap 13 mmol/L (10-20); BUN (Urea Nitrogen) 7 mg/dL (7.0-18.7); Bilirubin, Total 0.6 mg/dL (0.2-1.2); Calc. Creatinine Clearance 0 mL/min (70-130); Calcium 9.1 mg/dL (7.8-10.44); Carbon Dioxide 24 mmol/L (22-29); Chloride 102 mmol/L (98-107); Estimated GFR-MDRD 86; Globulin 4.6 g/dL (2.4-3.5); Glucose 90 mg/dL (70-105); Protein, Total 8.1 g/dL (6.0-8.3); Sodium 136 mmol/L (136-145)
[2019-07-14] MEDS ORDERED: methylPREDNISolone Sod Succ/PF 125 MG/2 ML VIAL ONE (11:15)
[2019-07-14 11:59] LABS: Bacteria/HPF 3+ HPF (None Seen); Bilirubin Negative (Negative); Blood, Urine Negative (Negative); Clarity Clear (Clear); Glucose, Urine (Dipstick) Normal (Negative); Leukocyte 500 Leu/uL (Negative); Nitrite Negative (Negative); Protein, Urine (Dipstick) 10 mg/dL (Neg-Trace); RBC/HPF 0-3 HPF (0-3); Squamous Epithelial 0-3 HPF (0-3); Urobilinogen Normal mg/dL (Less than 2); WBC/HPF Greater than 50 HPF (0-3)
[2019-07-14] MEDS ORDERED: Potassium Chloride 20 MEQ TAB ONE (12:01)
[2019-07-14] MEDS ORDERED: Iopamidol-370 76% 500 ML 1 ML ONE (12:29)
[2019-07-14] MEDS ORDERED: Iopamidol 370 76% 50 ML VIAL FS ONE (12:29)
[2019-07-14] MEDS ORDERED: cefTRIAXone\\ROCEPHIN 1 GM VIAL ONE (13:12)
--- NOTE | 2019-07-14 13:26 | CT ---
CT Abdomen Pelvis W Con HISTORY: Abdominal pain. History of Crohn's disease. Diarrhea for past 2 days. COMPARISON: 02/14/2019 exam. FINDINGS: The lung bases are clear. The liver, spleen and pancreas regions appear unremarkable. The g allbladder has been removed. Right and left adrenal glands and right and left kidneys are normal in size. There is no significant periaortic adenopathy. Once again there is a long segment of luminal narrowing of the terminal and distal ileum. The bowel w all thickening associated with this appears more pronounced than on the prior examination with associated fat stranding in this area. This would suggest that there is some acute on chronic inflamm atory change. There are no signs of perforation. There is free fluid seen in the cul-de-sac region, this is slightly more prominent than on the previous exam. No abscess collection or other findings. IMPRESSION: 1. Marked luminal narrowing to the distal and terminal ileum region that was present on the prior danyell dy. The bowel wall edema and fat stranding associated with this area are more pronounced than on the prior examination. This would suggest there is an acute on chronic element to patient's Crohn's. There is no signs of perforation or abscess.
[2019-07-14] MEDS ORDERED: Ondansetron PF 4 MG/2 ML Vial IVP PRN (14:57)
[2019-07-14] MEDS ORDERED: Morphine 4 MG/ML VIAL SLOW IVP PRN ×2 (15:07→18:08)
[2019-07-14 16:02] VITALS: BMI 22.4
[2019-07-14] MEDS: Sodium Chloride 0.9% 1,000 ML IV SCH (16:14)
[2019-07-14] MEDS ORDERED: FLU VACC QS2019-20(6MOS UP)/PF 60 MCG/0.5 ML SYRINGE IM ONE (16:45)
[2019-07-14] MEDS ORDERED: Acetaminophen 325 MG TAB PO PRN (18:07)
[2019-07-14] MEDS ORDERED: Bacteriostatic Water 30 ML VIAL FS PRN (18:13)
[2019-07-14] MEDS ORDERED: methylPREDNISolone Sod Succ 40 MG VIAL IVP SCH (18:15)
--- NOTE | 2019-07-14 18:47 | CON ---
DATE OF CONSULTATION: 07/14/2019 CHIEF COMPLAINT: Abdominal pain. HISTORY OF PRESENT ILLNESS: Ms. Gardner is a 38-year-old woman with Crohn disease of the terminal ileum, complicated by perianal disease with fistula and perirectal abscess. She has been on Inflectra every 8 weeks. She was last hospitalized with a flare of abdominal pain back in February of 2019, at which point she was treated with steroids. She improved while on the steroids and states that she is continued getting the Inflectra about every 8 weeks. Her last dose was on June 26. However, a couple of weeks ago, she started having epigastric sharp pain after eating, lasts for minutes to hours at a time. She has had no nausea or vomiting. She had 3 to 4 episodes of diarrhea per day over the last couple of days, but this has not been a persistent problem prior to that. Her joints were hurting a couple of weeks ago and so she was given a week course of steroid pack per primary physician. This helped with the joint pain. She has had no rashes or vision or eye problems. She has had no fever. No shortness of breath or chest pain. She has chronic drainage from the perianal fistulas. PAST MEDICAL HISTORY: Crohn disease of the ileum and perianal area. PAST SURGICAL HISTORY: She has had cholecystectomy and drainage of perirectal fistulas and abscesses by Colorectal Surgery in the past. She has seen Dr. Cheung previously. ALLERGIES: NO KNOWN DRUG ALLERGIES. FAMILY HISTORY: Negative for GI malignancy or inflammatory bowel disease. SOCIAL HISTORY: No alcohol, tobacco, or drugs. OUTPATIENT MEDICATIONS: Inflectra 5 mg/kg every 8 weeks. Her last dose was on June 26. Previously we had advised that she get an Inflectra trough level prior to infusion. However, she states she has not been able to get off work to make that happen. REVIEW OF SYSTEMS: Negative x10 systems reviewed except as stated in the history of present illness. PHYSICAL EXAMINATION: VITAL SIGNS: Temperature 98.0, pulse 80, blood pressure 101/55. GENERAL: She is in no acute distress. Alert and oriented x3. HEENT: Eyes have no scleral icterus. Oropharynx is clear without lesions. No cervical or supraclavicular lymphadenopathy. LUNGS: Clear to auscultation bilaterally. HEART: Regular rate and rhythm without murmur. ABDOMEN: Soft. She has mild tenderness in the epigastric region and right lower quadrant without guarding. Bowel sounds are present. EXTREMITIES: No lower extremity edema. NEUROLOGIC: Cranial nerves are grossly intact. LABORATORY DATA: White blood cell count 8.0, hemoglobin 9.9, platelets 350. INR 1.1. Creatinine 0.75, bilirubin 0.6, AST 9, ALT 7, alkaline phosphatase 84, and albumin 3.5. IMAGING DATA: She had a CT scan of the abdomen and pelvis performed in the emergency room, which showed marked luminal narrowing of the distal terminal ileum with bowel wall edema and fat stranding. These findings are actually improved compared to her previous CT in February. No perforation or abscess was seen. IMPRESSION: Exacerbation of Crohn disease involving the terminal ileum and perianal region. She has had increased pain lately and has only had diarrhea over the last few days. Currently, her symptoms are not really as bad as they were last time she was in the hospital, but she does get fairly significant improvement with steroids. She has now required steroids twice in the last 6 months. The question is whether the Inflectra is working adequately. Ideally, we would have had a trough level prior to her last couple of doses, but she has not been compliant with that. Given that this episode of pain is started only a week or two after her last dose of Inflectra, I am less inclined to think that a low Inflectra level is leading to this flare. We will need to rule out other source such as infection. Ultimately, if her Inflectra level is normal and these flares continue, then we will need to change medications. If her Inflectra level is low associated with these recurrent flares, then higher dose of the Inflectra would be the next step. In the meantime, we can cover her with steroids as she responds well to them. RECOMMENDATIONS: 1. Check stool studies. 2. Solu-Medrol IV 20 mg every 8 hours. 3. DVT prophylaxis. 4. Obtain an Inflectra level prior to the next dose, however, this will not be until August. 5. Once her symptoms are improved, then we can advance her diet and transition to oral steroids. Job ID: [id number]
--- NOTE | 2019-07-14 19:34 | HP ---
PRIMARY CARE PHYSICIAN: Anand Pollard MD CHIEF COMPLAINT: Abdominal pain with eating. HISTORY OF PRESENT ILLNESS: The patient is a 38-year-old female, who has been diagnosed with Crohn disease a few years back and she is under Dr. Rodriguez's care and for the last 2 weeks, she has been experiencing some pain with food while eating. She was able to tolerate liquids, but each time she started eating any solid foods, she started having some abdominal pain in the right side of the abdomen. She denied any fever or chills. She denies any dysuria. She denies any nausea or vomiting. She complained about some lightheadedness. She denied any shortness of breath, chest pain, or any other symptoms. She lost a few pounds in the last few weeks since she was not able to eat properly. She has some diarrhea for the last 2 days. PAST MEDICAL HISTORY: Crohn disease since 2012. PAST SURGICAL HISTORY: 1. Gallbladder surgery. 2. . MEDICATIONS: Inflectra infusion every eight weeks. SOCIAL HISTORY: She denies any alcohol intake, cigarette smoking, or illicit drug use. ALLERGIES: NONE. FAMILY HISTORY: Mother has diabetes and father is healthy. Primary care physician is Dr. Pollard and primary scalp treatment operator is Dr. Rodriguez. Surrogate decision maker is the patient's sister, Kenna Cotton. REVIEW OF SYSTEMS: All 14 systems were reviewed and they were negative except for those, which are mentioned in HPI. PHYSICAL EXAMINATION: VITAL SIGNS: Blood pressure is 92/53 and pulse is 84. She is afebrile. Respirations 14. HEENT: Her head is atraumatic and normocephalic. Eyes are PERRLA. Sclerae are nonicteric. Conjunctivae are palish. Oral mucosa is moist. NECK: Supple. LUNGS: Clear. HEART: S1 and S2 normal. No S3. No S4. ABDOMEN: Soft, but tender in the right side of the abdomen. No guarding. Possible mass palpable in the right lower quadrant, size approximately couple of inches. EXTREMITIES: No clubbing, cyanosis, or edema. NEUROLOGIC: She is alert and oriented x4. There is no any motor or sensory deficits. Cranial nerves are intact. LABORATORY DATA: Labs showed white count of 8.0, hemoglobin 9.9, hematocrit 31.7, and platelet count is 350. Sodium of 136, potassium 3.0, chloride 102, CO2 of 24, BUN of 7, and creatinine of 0.75. The rest of chemistry is within normal limits except for globulin, which is 4.6. Urinalysis showed trace of ketones, 500 of leukocyte esterases, greater than 50 of wbc's and 3+ urine bacteria. The rest of urinalysis is within normal limits. IMAGES: CT of the abdomen and pelvis with contrast showed a marked luminal narrowing to the distal and terminal ileum region, bowel wall edema, and fat stranding associated with this area. There was no any signs of perforation. No abscess. IMPRESSION: 1. Abdominal pain with eating with positive CT scan of the abdomen and pelvis positive for Crohn disease exacerbation. 2. Hypokalemia. The patient received 40 mEq of KCl in the emergency room. 3. Normocytic anemia with MCV of 79.9. 4. Possible urinary tract infection. PLAN: Full admission to the medical floor. Diet, n.p.o. with some ice chips until the patient is seen by GI specialist. IV fluids normal saline 100 mL/h. Rocephin 1 g every 24 hours. Blood cultures and urine cultures. Solu-Medrol 40 mg IV push every 6 hours. The patient received 125 mg in the emergency room, morphine p.r.n. for the pain as needed and DVT prophylaxis with SCDs and GI consult. Job ID: [id number]
[2019-07-14] MEDS: Enoxaparin Sodium 40 MG/0.4 ML SYRINGE SC SCH (21:02)
[2019-07-15] MEDS: methylPREDNISolone Sod Succ 40 MG VIAL IVP SCH ×3 (02:17→18:31)
[2019-07-15] MEDS: Sodium Chloride 0.9% 1,000 ML IV SCH ×3 (02:18→22:41)
[2019-07-15 04:25] LABS: #Lymphocytes 1.1 thou/uL (1.20-3.40); #Monocytes 0.3 thou/uL (0.11-0.59); #Neutrophils 11.2 thou/uL (1.40-6.50); %Basophils 0.3 % (0.0-1.0); %Monocytes 2.2 % (0.0-10.0); %Neutrophils 88.5 % (42.0-75.0); Hemoglobin 8.1 g/dL (12.0-16.0); Mean Corpuscular HGB CONC 30.6 g/dL (32.0-36.0); Mean Corpuscular Hemoglobin 24.6 pg (27.0-31.0); Mean Corpuscular Volume 80.2 fL (78.0-98.0); Mean Platelet Volume 7.5 fL (7.4-10.4); Platelet Count 356 thou/uL (130-400); RBC Distribution Width 16.3 % (11.5-14.5); Red Blood Cell (RBC) Count 3.28 mill/uL (4.20-5.40); White Blood Cell (WBC) Count 12.6 thou/uL (4.8-10.8)
[2019-07-15 04:45] LABS: Anion Gap 12 mmol/L (10-20); BUN (Urea Nitrogen) 6 mg/dL (7.0-18.7); Calc. Creatinine Clearance 103 mL/min (70-130); Calcium 8.1 mg/dL (7.8-10.44); Carbon Dioxide 20 mmol/L (22-29); Chloride 110 mmol/L (98-107); Estimated GFR-MDRD Greater than 90; Glucose 109 mg/dL (70-105); Potassium 3.6 mmol/L (3.5-5.1); Sodium 138 mmol/L (136-145)
[2019-07-15] MEDS ORDERED: methylPREDNISolone Sod Succ/PF 125 MG/2 ML VIAL IVP SCH (09:00)
[2019-07-15 09:11] LABS: Magnesium 2.2 mg/dL (1.6-2.6); Phosphorus 3.3 mg/dL (2.3-4.7)
[2019-07-15] MEDS: Vancomycin HCl 25 MG/ML Oral PO SCH ×3 (11:24→23:53)
--- NOTE | 2019-07-15 11:51 | PRG ---
DATE OF SERVICE: 07/15/2019 SUBJECTIVE: Ms. Gardner continues to have cramping in the lower abdomen. She has had 3 liquidy stools this morning so far. She has no nausea or vomiting. OBJECTIVE: VITAL SIGNS: Temperature 98.0, pulse 82, and blood pressure 93/51. GENERAL: She is in no acute distress. Awake and alert. LUNGS: Clear to auscultation bilaterally. HEART: Regular rate and rhythm without murmur. ABDOMEN: Soft. Mild tenderness in the lower abdomen without guarding. Bowel sounds are present. EXTREMITIES: No lower extremity edema. LABORATORY DATA: White blood cell count 12.6, hemoglobin 8.1, and platelets 356. Creatinine 0.6. IMPRESSION: 1. Acute exacerbation of small bowel Crohn disease. She also has chronic perianal disease with drainage from fistulas. CT shows acute inflammatory changes of the distal ileum. Unfortunately, she is flaring despite Inflectra. We will want to check an Inflectra dose. The question is whether or not she is at inadequate dosing versus failure of this class of medication. She just had a most recent dose back on June 26, so if it is just that she is suboptimally dosed, I would have expected her to flare later into the eight-week course. It could be that she has had a flare triggered by the Clostridium difficile, but is primarily small bowel disease going on by imaging. 2. Clostridium difficile antigen positive. This will be treated. Still, I think the primary issue here is the Crohn's. RECOMMENDATIONS: 1. Solu-Medrol q.8 hours. 2. Vancomycin p.o. 3. Inflectra level prior to the next dose. 4. Further plan will be based on her response to the steroid and vancomycin. I expect she will be in the hospital for few more days. ADDENDUM: Her urinalysis indicates urinary tract infection as she had been started yesterday on ceftriaxone for that. We will want to stop these antibiotics as soon as possible after she has received an adequate course for the UTI in light of the positive C. diff now. So far, the culture just showed mixed christiano, but the urinalysis was sufficiently abnormal that I would at least complete a 3-day course of the antibiotics for the UTI. I will defer this to the Internal Medicine team recommendations. Job ID: [id number]
[2019-07-15] MEDS: cefTRIAXone\\ROCEPHIN 1 GM in Sodium Chloride 0.9% 100 ML IVPB SCH (14:07)
[2019-07-15] MEDS ORDERED: Sodium Chloride 0.9% 10 ML ONE (20:05)
[2019-07-15] MEDS: Enoxaparin Sodium 40 MG/0.4 ML SYRINGE SC SCH (20:11)
[2019-07-16] MEDS: methylPREDNISolone Sod Succ 40 MG VIAL IVP SCH ×3 (02:16→18:05)
[2019-07-16] MEDS: Vancomycin HCl 25 MG/ML Oral PO SCH ×3 (05:26→18:05)
[2019-07-16 06:24] LABS: Magnesium 2.3 mg/dL (1.6-2.6); Phosphorus 2.8 mg/dL (2.3-4.7)
[2019-07-16] MEDS: Sodium Chloride 0.9% 1,000 ML IV SCH (06:38)
--- NOTE | 2019-07-16 07:37 | PDOC.HOSPP ---
- Subjective Encounter Date: 07/15/19 Encounter Time: 14:00 Subjective: Patient seen and examined for UTI/Colitis. Abd pain improving. Diarrhea +. Some nausea. Tolerating full liqds. No other complaints. No overnight events - Objective Vital Signs & Weight: Vital Signs (12 hours) Temp Pulse Resp BP Pulse Ox 07/16/19 04:00 97.6 F 66 16 90/51 L 99 07/16/19 00:00 97.4 F L 48 L 16 95/56 L 100 07/15/19 22:00 97.7 F 70 16 96/59 L 97 07/15/19 20:00 96.7 F L 64 16 99/54 L 96 Weight Admit Weight 114 lb 10.246 oz Weight 114 lb 10.246 oz I&O: 07/15/19 07/16/19 07/17/19 06:59 06:59 06:59 Intake Total 100 3120 Balance 100 3120 Result Diagrams: 07/15/19 04:10 07/15/19 04:10 Radiology Reviewed by me: Yes (CT abd - reviewed) Hospitalist ROS - Review of Systems Cardiovascular: denies: chest pain, palpitations, orthopnea, paroxysmal noc. dyspnea, edema, light headedness, other Gastrointestinal: denies: nausea, vomiting, abdominal pain, diarrhea, constipation, melena, hematochezia, other - Medication Medications: Active Medications Generic Name Dose Route Start Last Admin Trade Name Freq PRN Reason Stop Dose Admin Enoxaparin Sodium 40 mg 07/14/19 21:00 07/15/19 20:11 Lovenox SC 40 mg 2100 HAROON Administration Ceftriaxone Sodium 1 gm/ 100 mls @ 200 mls/hr 07/15/19 15:00 07/15/19 14:07 Sodium Chloride IVPB 100 mls Q24HR HAROON Administration Sodium Chloride 1,000 mls @ 100 mls/hr 07/14/19 15:00 07/16/19 06:38 Normal Saline 0.9% IV 1,000 mls .Q10H HAROON Administration Methylprednisolone Sodium Succinate 20 mg 07/15/19 02:00 07/16/19 02:16 Solu-Medrol IVP 20 mg 0200,1000,1800 HAROON Administration Vancomycin HCl 125 mg 07/15/19 12:00 07/16/19 05:26 First Vancomycin PO 125 mg Q6HR HAROON Administration - Exam General Appearance: NAD Heart: RRR, no gallops Respiratory: CTAB, no rales Gastrointestinal: soft, normal bowel sounds Gastrointestinal - other findings: mild gen tenderness Extremities: no edema Neurological: no new deficit Hosp A/P - Plan DVT proph w/SCDs Acute Chrohns disease exacerbation (POA) C diff diarrhea (POA) Abd pain due to above UTI (POA) Hypokalemia (POA) Chronic anemia PLAN: Cont IVF Cont IV Steroids PO Vancomycin started C diff isolation Will dc IV Ceftriaxone after total of 3 days Ambulate
[2019-07-16 09:03] LABS: Anion Gap 11 mmol/L (10-20); BUN (Urea Nitrogen) 7 mg/dL (7.0-18.7); Calc. Creatinine Clearance 102 mL/min (70-130); Calcium 8.2 mg/dL (7.8-10.44); Carbon Dioxide 21 mmol/L (22-29); Chloride 112 mmol/L (98-107); Estimated GFR-MDRD Greater than 90; Glucose 117 mg/dL (70-105); Potassium 4.2 mmol/L (3.5-5.1); Sodium 140 mmol/L (136-145)
[2019-07-16] MEDS ORDERED: Sodium Chloride 0.45% 1,000 ML IV SCH (09:15)
[2019-07-16] MEDS: Calcium Carbonate + Vit D 1 TAB PO SCH ×2 (09:39→18:04)
[2019-07-16] MEDS: Multivit, Therapeutic 1 TAB PO SCH (09:39)
[2019-07-16] MEDS: Famotidine 20 MG TAB PO SCH ×2 (09:39→20:46)
[2019-07-16] MEDS ORDERED: D5W-AA 4.25% with LYTES 1,000 ML BAG IV SCH (10:00)
--- NOTE | 2019-07-16 11:55 | PDOC.HOSPP ---
- Subjective Encounter Date: 07/16/19 Encounter Time: 10:30 Subjective: Patient seen and examined for Crohns flare. Diarrhea slowing down. Nausea improving. No new complaints. No overnight events - Objective Vital Signs & Weight: Vital Signs (12 hours) Temp Pulse Resp BP Pulse Ox 07/16/19 11:48 97.7 F 51 L 16 90/52 L 100 07/16/19 09:00 100 07/16/19 08:00 97.7 F 63 16 89/57 L 100 07/16/19 04:00 97.6 F 66 16 90/51 L 99 07/16/19 00:00 97.4 F L 48 L 16 95/56 L 100 Weight Admit Weight 114 lb 10.246 oz Weight 114 lb 10.246 oz I&O: 07/15/19 07/16/19 07/17/19 06:59 06:59 06:59 Intake Total 100 3120 Balance 100 3120 Result Diagrams: 07/15/19 04:10 07/16/19 08:37 Hospitalist ROS - Review of Systems Cardiovascular: denies: chest pain, palpitations, orthopnea, paroxysmal noc. dyspnea, edema, light headedness, other Genitourinary: denies: dysuria, frequency, incontinence, hematuria, retention, other - Medication Medications: Active Medications Generic Name Dose Route Start Last Admin Trade Name Freq PRN Reason Stop Dose Admin Calcium/Vitamin D 1 tab 07/16/19 08:00 07/16/19 09:39 Caltrate 600 + Vit D PO 1 tab BID-WM HAROON Administration Enoxaparin Sodium 40 mg 07/14/19 21:00 07/15/19 20:11 Lovenox SC 40 mg 2100 HAROON Administration Famotidine 20 mg 07/16/19 09:00 07/16/19 09:39 Pepcid PO 20 mg BID HAROON Administration Ceftriaxone Sodium 1 gm/ 100 mls @ 200 mls/hr 07/15/19 15:00 07/15/19 14:07 Sodium Chloride IVPB 07/16/19 23:59 100 mls Q24HR HAROON Administration Methylprednisolone Sodium Succinate 20 mg 07/15/19 02:00 07/16/19 09:41 Solu-Medrol IVP 20 mg 0200,1000,1800 HAROON Administration Multivitamins 1 tab 07/16/19 09:00 07/16/19 09:39 Theragran PO 1 tab DAILY HAROON Administration Vancomycin HCl 125 mg 07/15/19 12:00 07/16/19 05:26 First Vancomycin PO 125 mg Q6HR HAROON Administration - Exam General Appearance: NAD Heart: RRR, no gallops Respiratory: CTAB, no rales Gastrointestinal: soft, non-tender, normal bowel sounds Extremities: no edema Hosp A/P - Plan DVT proph w/SCDs Acute Chrohns disease exacerbation (POA) C diff diarrhea (POA) Abd pain due to above UTI (POA) Hypokalemia (POA) Moderate PEM (POA) Chronic anemia PLAN: DC IVF Start PPN Cont IV Steroids Cont PO Vancomycin C diff isolation Will dc IV Ceftriaxone after todays dose Ambulate
[2019-07-16] MEDS: cefTRIAXone\\ROCEPHIN 1 GM in Sodium Chloride 0.9% 100 ML IVPB SCH (15:23)
--- NOTE | 2019-07-16 18:35 | PRG ---
DATE OF SERVICE: 07/16/2019 SUBJECTIVE: Ms. Gardner feels better today. She has had no bowel movements today. She did have some lower abdominal cramping after she ate. PHYSICAL EXAMINATION: VITAL SIGNS: Temperature 98.2, pulse 51, blood pressure 83/44. GENERAL: She is in no acute distress. Alert and oriented x3. LUNGS: Clear to auscultation bilaterally. HEART: Regular rate and rhythm without murmur. ABDOMEN: Soft, nontender, nondistended. Bowel sounds are present. EXTREMITIES: No lower extremity edema. LABORATORY DATA: Creatinine 0.61. Urine culture grew gram-negative rods. Clostridium difficile antigen was positive, but the PCR was negative. IMPRESSION: 1. Exacerbation of small bowel Crohn disease. CT scan shows inflammatory changes of the ileum. She is clinically doing better. We should be ready to transition to oral steroids in the morning and advance her diet. 2. Urinary tract infection with Escherichia coli. She is receiving ceftriaxone for that. 3. Clostridium difficile antigen positive. Given the diarrhea and exacerbation of inflammatory bowel disease, we will treat this with a 14-day course of vancomycin 4 times daily. Also, try to limit the ceftriaxone to a short course as possible. RECOMMENDATIONS: 1. Advance to a low residue diet. 2. Change to prednisone tomorrow morning. Job ID: [id number]
[2019-07-16] MEDS: Enoxaparin Sodium 40 MG/0.4 ML SYRINGE SC SCH (20:46)
[2019-07-17] MEDS: Vancomycin HCl 25 MG/ML Oral PO SCH ×4 (00:04→17:39)
[2019-07-17] MEDS: methylPREDNISolone Sod Succ 40 MG VIAL IVP SCH (03:00)
[2019-07-17] MEDS ORDERED: D5W-AA 4.25% with LYTES 1,000 ML BAG IV SCH (05:15)
[2019-07-17 05:45] LABS: #Lymphocytes 1.2 thou/uL (1.20-3.40); #Monocytes 0.3 thou/uL (0.11-0.59); #Neutrophils 5.5 thou/uL (1.40-6.50); %Eosinophils 0.2 % (0.0-10.0); %Lymphocytes 17.4 % (21.0-51.0); %Monocytes 3.9 % (0.0-10.0); %Neutrophils 78.4 % (42.0-75.0); Hemoglobin 8.4 g/dL (12.0-16.0); Mean Corpuscular HGB CONC 30.3 g/dL (32.0-36.0); Mean Corpuscular Hemoglobin 24.9 pg (27.0-31.0); Mean Corpuscular Volume 82.1 fL (78.0-98.0); Mean Platelet Volume 8.2 fL (7.4-10.4); Platelet Count 358 thou/uL (130-400); RBC Distribution Width 16.7 % (11.5-14.5); Red Blood Cell (RBC) Count 3.38 mill/uL (4.20-5.40)
[2019-07-17 05:59] LABS: Anion Gap 8 mmol/L (10-20); BUN (Urea Nitrogen) 10 mg/dL (7.0-18.7); Calc. Creatinine Clearance 94 mL/min (70-130); Calcium 8.5 mg/dL (7.8-10.44); Carbon Dioxide 27 mmol/L (22-29); Chloride 107 mmol/L (98-107); Estimated GFR-MDRD Greater than 90; Glucose 151 mg/dL (70-105); Potassium 4.7 mmol/L (3.5-5.1); Sodium 137 mmol/L (136-145)
[2019-07-17] MEDS ORDERED: predniSONE 20 MG TAB PO SCH (08:00)
[2019-07-17] MEDS: Famotidine 20 MG TAB PO SCH (08:13)
[2019-07-17] MEDS: Multivit, Therapeutic 1 TAB PO SCH (08:13)
[2019-07-17] MEDS: Calcium Carbonate + Vit D 1 TAB PO SCH ×2 (08:13→17:39)
--- NOTE | 2019-07-17 15:43 | PRG ---
DATE OF SERVICE: 07/17/2019 SUBJECTIVE: Ms. Gardner has no abdominal pain. She had one loose stool yesterday and one loose stool today. She has had no blood in the stool. No nausea or vomiting. She tolerated a solid low residue diet well today. OBJECTIVE: LUNGS: Clear to auscultation bilaterally. HEART: Regular rate and rhythm. ABDOMEN: Soft, nontender, and nondistended. Bowel sounds are present. EXTREMITIES: No lower extremity edema. LABORATORY DATA: White blood cell count 7.0, hemoglobin 8.4, and platelets 358. Creatinine is 0.66. IMPRESSION: 1. Exacerbation of small-bowel Crohn disease is responding well to steroids. Her last dose of Inflectra was 06/26/2019. However, she appears to be having an adequate response to this medication given the ongoing inflammatory changes noted by CT scan. She will need to follow up in the office and anticipate transitioning to an alternative biologic. She has changed to oral steroids today with improvement. 2. Urinary tract infection with Escherichia coli. She should receive her third dose of ceftriaxone today and that she complete her course for antibiotics. 3. difficile antigen positive. We will complete a 14-day course of vancomycin orally 4 times daily. RECOMMENDATIONS: 1. Low residue diet. 2. Prednisone taper. Prescription was left in the chart. 40 mg for a week, 30 mg for a week, 20 mg for a week, 10 mg for a week, 5 mg for a week, and then discontinue. 3. Complete vancomycin for a 14-day course. 4. She should be ready to discharge home today. Job ID: [id number]
[2019-07-17 16:22] VITALS: BP 91/58
[2019-07-17 16:25] VITALS: TEMP 98
--- NOTE | 2019-07-18 08:23 | DIS ---
DATE OF ADMISSION: 07/14/2019 DATE OF DISCHARGE: 07/17/2019 DISCHARGE DISPOSITION: Home. FOLLOWUP: 1. Follow up with primary care physician, Dr. Anand Pollard in 3 to 4 days. 2. Follow up with Dr. Kwabena Rodriguez as scheduled. ALLERGIES: NO KNOWN DRUG ALLERGIES. DISCHARGE MEDICATIONS: 1. Prednisone taper. 2. Vancomycin 125 mg every 6 hourly for next 11 days. INPATIENT ENGLISH TEACHER: Gastroenterology, Dr. Rodriguez. The patient was seen on the day of discharge. Denies any new complaints. Symptomatically feels much better. Tolerating low-residue diet. BRIEF HOSPITAL COURSE: The patient is a 38-year-old female with Crohn disease, presented to the hospital with abdominal pain, nausea, and diarrhea. She was admitted to the medical floor with a diagnosis of Crohn's exacerbation. CT scan of the abdomen and pelvis with contrast showed marked luminal narrowing to the distal and terminal ileum region that was present on the prior study. The bowel wall edema and the fat stranding associated with this area were more pronounced than the prior examination. There was no sign of perforation or abscess. A stool workup was positive for lactoferrin as well as C difficile toxin. She was also diagnosed with E coli UTI, sensitive to ceftriaxone. She was started on ceftriaxone along with steroids. She was initially kept n.p.o. and was started on clear liquid that has been progressed to low-residue diet. She completed 3 days of IV ceftriaxone for UTI. The antibiotics were minimized per GI recommendation due to C difficile diarrhea. She has been cleared by Gastroenterology for discharge. FINAL DIAGNOSES: 1. Acute Crohn disease exacerbation, present on admission. 2. Clostridium difficile diarrhea, present on admission. 3. Escherichia coli urinary tract infection, present on admission. 4. Nausea, vomiting, and diarrhea with abdominal pain secondary to Crohn disease exacerbation, present on admission. 5. Hypokalemia, resolved. 6. Moderate protein energy malnutrition. 7. Chronic anemia. 8. Moderate protein/calorie malnutrition. PLAN: Plan was discussed with the patient in detail. She stated understanding. Job ID: [id number]
== END 2019-07-17 18:03 | disposition home or self-care (01) | DRG 386 ==
LOC: ERS 10:05 → 3SE 15:54 → T4-B 07-15 21:45
PROVIDERS: ADMIT Internal Medicine; ATTEND Internal Medicine
DX: K50.90 Crohn's disease, unspecified, without complications (principal); N39.0 Urinary tract infection, site not specified; E44.0 Moderate protein-calorie malnutrition; B96.20 Unspecified Escherichia coli [E. coli] as the cause of diseases classified elsewhere; E87.6 Hypokalemia; D64.9 Anemia, unspecified; Z90.49 Acquired absence of other specified parts of digestive tract; F32.9 Major depressive disorder, single episode, unspecified; Z68.22 Body mass index [BMI] 22.0-22.9, adult; A04.72 Enterocolitis due to Clostridium difficile, not specified as recurrent
CPT/HCPCS: 36415; 74177; 80048; 80053; 81003; 81015; 83630; 83735; 84100; 84443; 84703; 85025; 87045; 87046; 87077; 87086; 87186; 87324; 87328; 87329; 87427; 87449; 87493; 96361; 96365; 96375; J0696; J1650; J2920; J2930; J3490; J7512; Q9967

== ENCOUNTER 2019-08-21 08:25 | Day surgery (SDC) | payer OTHER ==
[~2019-08-21 08:25] MED LIST changes: -diphenhydrAMINE 50 MG/ML VIAL IVP PRN
[2019-08-21] MEDS ORDERED: Sodium Chloride 0.9% 20 ML ONE (08:39)
[2019-08-21 12:51] VITALS: BP 99/51; TEMP 98.2
== END 2019-08-21 12:52 | disposition home or self-care (01) ==
LOC: ONC/OP 08:25
PROVIDERS: ATTEND Internal Medicine Gastroenterology
DX: K50.813 Crohn's disease of both small and large intestine with fistula (principal)
CPT/HCPCS: 96413; 96415; J7050; Q0163; Q5103

== ENCOUNTER 2019-11-06 15:13 | Outpatient (CLI) | payer OTHER ==
--- NOTE | 2019-11-06 15:59 | ULT ---
RENAL ULTRASOUND: COMPARISON: None. HISTORY: Urinary urgency and frequent urination for 1 month. TECHNIQUE: Multiplanar, zayas scale, and color Doppler images were obtained in a renal ultrasound. FINDINGS: There is an echogenic structure in the left kidney measuring 6 mm in size. This may represent a nono bstructing calcification. No calcifications are seen in the right kidney. No hydronephrosis is seen . The kidneys measure 11.5 and 10.5 cm in length on the right and left, respectively. Limited visualization of the urinary bladder is unremarkable. IMPRESSION: Nonobstructing left renal calcification. POS: [facility]
== END 2019-11-06 15:14 | disposition home or self-care (01) ==
LOC: BICULT 15:13
PROVIDERS: ATTEND Family Medicine
DX: E83.59 Other disorders of calcium metabolism (principal); N28.89 Other specified disorders of kidney and ureter
CPT/HCPCS: 76770

== ENCOUNTER 2022-10-12 19:06 | Inpatient (IN) | payer OTHER ==
[~2022-10-12 19:06] MED LIST changes: -Acetaminophen 500 MG TAB PO SCH; -INFLIXIMAB DYYB IVPB SCH; +Iopamidol-370 76% 500 ML 1 ML ONE; -SODIUM CHLORIDE 0.9% IVPB SCH; -diphenhydrAMINE 25 MG CAP PO SCH
[2022-10-12 19:57] LABS: #Lymphocytes 0.9 thou/uL (1.20-3.40); #Monocytes 0.4 thou/uL (0.11-0.59); #Neutrophils 13.5 thou/uL (1.40-6.50); %Basophils 0.1 % (0.0-1.0); %Eosinophils 0.1 % (0.0-10.0); %Lymphocytes 5.8 % (21.0-51.0); %Monocytes 2.8 % (0.0-10.0); %Neutrophils 91.3 % (42.0-75.0); Hemoglobin 13.1 g/dL (12.0-16.0); Mean Corpuscular HGB CONC 31.6 g/dL (32.0-36.0); Mean Corpuscular Hemoglobin 26.9 pg (27.0-31.0); Mean Corpuscular Volume 84.9 fl (78.0-98.0); Mean Platelet Volume 8.4 fL (7.4-10.4); Platelet Count 392 10x3/uL (130-400); RBC Distribution Width 14.7 % (11.5-14.5); Red Blood Cell (RBC) Count 4.88 mill/uL (4.20-5.40); White Blood Cell (WBC) Count 14.8 10x3/uL (4.8-10.8)
[2022-10-12] MEDS ORDERED: Morphine 4 MG/ML VIAL ONE ×2 (20:02→22:21)
[2022-10-12] MEDS ORDERED: Dicyclomine 20 MG/2 ML VIAL ONE (20:03)
[2022-10-12] MEDS ORDERED: Ondansetron PF 4 MG/2 ML Vial ONE (20:03)
[2022-10-12 20:17] LABS: ALT (SGPT) 8 U/L (8-55); AST (SGOT) 12 U/L (5-34); Albumin 4.3 g/dL (3.5-5.0); Alkaline Phosphatase 98 U/L (40-110); Anion Gap 16 mmol/L (10-20); BUN (Urea Nitrogen) 17 mg/dL (7.0-18.7); Bilirubin, Total 0.6 mg/dL (0.2-1.2); Calc. Creatinine Clearance 0 mL/min (70-130); Calcium 9.7 mg/dL (7.8-10.44); Carbon Dioxide 20 mmol/L (22-29); Chloride 105 mmol/L (98-107); Estimated GFR 70; Globulin 4.7 g/dL (2.4-3.5); Glucose 138 mg/dL (70-105); Potassium 3.6 mmol/L (3.5-5.1); Sodium 137 mmol/L (136-145)
[2022-10-12 20:24] LABS: CRP (Inflammatory) 4.08 mg/dL (= or < 0.5)
[2022-10-12 22:34] LABS: BHCG - Serum Negative (NEGATIVE); Pregs Control Background? CLEAR/WHITE (CLR/WHITE); Pregs Control Bar Appear? YES (CONTROL BAR)
[2022-10-12] MEDS ORDERED: Piperacillin/Tazobactam 4.5 GM VIAL ONE (23:52)
[2022-10-13] MEDS ORDERED: metroNIDAZOLE 500 MG/100 ML BAG ONE (00:10)
[2022-10-13] MEDS ORDERED: Ondansetron PF 4 MG/2 ML Vial IVP PRN (00:32)
[2022-10-13 00:46] LABS: #Lymphocytes 1.4 thou/uL (1.20-3.40); #Monocytes 0.8 thou/uL (0.11-0.59); #Neutrophils 9.5 thou/uL (1.40-6.50); %Eosinophils 0.1 % (0.0-10.0); %Monocytes 6.9 % (0.0-10.0); %Neutrophils 80.9 % (42.0-75.0); Hemoglobin 11.6 g/dL (12.0-16.0); Mean Corpuscular HGB CONC 31.3 g/dL (32.0-36.0); Mean Corpuscular Volume 86.1 fl (78.0-98.0); Mean Platelet Volume 8.3 fL (7.4-10.4); Platelet Count 328 10x3/uL (130-400); RBC Distribution Width 14.5 % (11.5-14.5); Red Blood Cell (RBC) Count 4.29 mill/uL (4.20-5.40); White Blood Cell (WBC) Count 11.8 10x3/uL (4.8-10.8)
[2022-10-13] MEDS ORDERED: Morphine 4 MG/ML VIAL SLOW IVP PRN (00:47)
[2022-10-13 01:13] LABS: ALT (SGPT) Less than 7 U/L (8-55); AST (SGOT) 11 U/L (5-34); Albumin 3.3 g/dL (3.5-5.0); Alkaline Phosphatase 80 U/L (40-110); Anion Gap 15 mmol/L (10-20); BUN (Urea Nitrogen) 14 mg/dL (7.0-18.7); Bilirubin, Total 0.5 mg/dL (0.2-1.2); Calc. Creatinine Clearance 0 mL/min (70-130); Calcium 8.2 mg/dL (7.8-10.44); Carbon Dioxide 17 mmol/L (22-29); Chloride 108 mmol/L (98-107); Estimated GFR 105; Globulin 3.8 g/dL (2.4-3.5); Glucose 110 mg/dL (70-105); Potassium 3.6 mmol/L (3.5-5.1); Protein, Total 7.1 g/dL (6.0-8.3); Sodium 136 mmol/L (136-145)
[2022-10-13] MEDS: Lactated Ringer's 1,000 ML IV SCH ×3 (01:23→17:24)
[2022-10-13 01:29] VITALS: BMI 25.0
[2022-10-13] MEDS: metroNIDAZOLE 500 MG in Premix Bag 1 BAG IVPB SCH ×3 (05:44→22:18)
[2022-10-13] MEDS: methylPREDNISolone Sod Succ 40 MG VIAL IVP SCH (17:20)
[2022-10-14] MEDS: Lactated Ringer's 1,000 ML IV SCH ×4 (02:01→21:58)
[2022-10-14] MEDS: methylPREDNISolone Sod Succ 40 MG VIAL IVP SCH ×4 (02:01→21:59)
[2022-10-14 06:30] LABS: #Lymphocytes 0.9 thou/uL (1.20-3.40); #Monocytes 0.1 thou/uL (0.11-0.59); #Neutrophils 8.7 thou/uL (1.40-6.50); %Lymphocytes 8.8 % (21.0-51.0); %Neutrophils 90.2 % (42.0-75.0); Hemoglobin 10.5 g/dL (12.0-16.0); Mean Corpuscular HGB CONC 31.1 g/dL (32.0-36.0); Mean Corpuscular Hemoglobin 27.1 pg (27.0-31.0); Mean Corpuscular Volume 87.1 fl (78.0-98.0); Mean Platelet Volume 8.5 fL (7.4-10.4); Platelet Count 292 10x3/uL (130-400); RBC Distribution Width 14.3 % (11.5-14.5); Red Blood Cell (RBC) Count 3.86 mill/uL (4.20-5.40); White Blood Cell (WBC) Count 9.6 10x3/uL (4.8-10.8)
[2022-10-14] MEDS: metroNIDAZOLE 500 MG in Premix Bag 1 BAG IVPB SCH ×3 (06:31→21:58)
[2022-10-14 06:52] LABS: ALT (SGPT) Less than 7 U/L (8-55); AST (SGOT) 10 U/L (5-34); Albumin 2.9 g/dL (3.5-5.0); Alkaline Phosphatase 68 U/L (40-110); Anion Gap 11 mmol/L (10-20); BUN (Urea Nitrogen) 9 mg/dL (7.0-18.7); Bilirubin, Total 0.4 mg/dL (0.2-1.2); Calc. Creatinine Clearance 109 mL/min (70-130); Calcium 8.3 mg/dL (7.8-10.44); Carbon Dioxide 20 mmol/L (22-29); Chloride 108 mmol/L (98-107); Estimated GFR 113; Globulin 3.3 g/dL (2.4-3.5); Glucose 102 mg/dL (70-105); Potassium 3.9 mmol/L (3.5-5.1); Protein, Total 6.2 g/dL (6.0-8.3); Sodium 135 mmol/L (136-145)
[2022-10-14] MEDS ORDERED: Saccharomyces boulardii 250 MG CAP PO SCH (13:00)
[2022-10-15] MEDS: Lactated Ringer's 1,000 ML IV SCH (06:20)
[2022-10-15] MEDS: metroNIDAZOLE 500 MG in Premix Bag 1 BAG IVPB SCH ×2 (06:21→14:41)
[2022-10-15] MEDS: methylPREDNISolone Sod Succ 40 MG VIAL IVP SCH (06:21)
[2022-10-15] MEDS ORDERED: Saccharomyces boulardii 250 MG CAP PO SCH (09:00)
[2022-10-15] MEDS: Vancomycin HCl 125 MG/5 ML (BATCHED) UDCUP PO SCH ×2 (12:29→17:51)
[2022-10-15] MEDS ORDERED: methylPREDNISolone Sod Succ 40 MG VIAL IVP SCH (14:00)
[2022-10-15 19:18] VITALS: BP 100/66; TEMP 98.1
== END 2022-10-15 19:15 | disposition home or self-care (01) | DRG 372 ==
LOC: ERS 19:06 → T4-B 10-13 00:15
PROVIDERS: ADMIT Family Medicine; ATTEND Internal Medicine
DX: A04.72 Enterocolitis due to Clostridium difficile, not specified as recurrent (principal); K50.012 Crohn's disease of small intestine with intestinal obstruction; K50.013 Crohn's disease of small intestine with fistula; Z20.822 Contact with and (suspected) exposure to COVID-19; R78.81 Bacteremia; K21.9 Gastro-esophageal reflux disease without esophagitis; B95.5 Unspecified streptococcus as the cause of diseases classified elsewhere; Z90.49 Acquired absence of other specified parts of digestive tract
CPT/HCPCS: 36415; 74022; 74177; 80053; 83605; 83690; 84703; 85025; 86140; 87040; 87077; 87149; 87186; 87324; 87449; 96372; 96374; 96375; 96376; J1956; J2270; J2405; J2543; J2920; J7120; Q9967; U0003; U0005

== ENCOUNTER 2023-03-12 06:43 | Emergency (ER) | payer OTHER, SELFPAY ==
[2023-03-12] MEDS ORDERED: Lidocaine 1% MPF 2 ML VIAL ONE (07:47)
[2023-03-12] MEDS ORDERED: cefTRIAXone (ROCEPHIN) 500 MG VIAL ONE (07:47)
[2023-03-12] MEDS ORDERED: Azithromycin 250 MG TAB ONE (07:47)
[2023-03-12 07:48] LABS: Bacteria/HPF 1+ HPF (None Seen); Bilirubin Negative (Negative); Blood, Urine Trace (Negative); CAUTI Indications for Culture Pelvic or flank pain; Calcium Oxalate Crystals Rare HPF (None Seen); Clarity Clear (Clear); Glucose, Urine (Dipstick) Normal (Negative); Ketone, Urine Negative (Negative); Leukocyte 75 Leu/uL (Negative); Nitrite Negative (Negative); Protein, Urine (Dipstick) 10 mg/dL (Neg-Trace); RBC/HPF 0-3 HPF (0-3); Specific Gravity, Urine 1.027 (1.002-1.036); Urobilinogen Normal mg/dL (Less than 2); pH, Urine 5.5 (5.0-9.0)
[2023-03-12 07:49] LABS: Urine Culture Reflex No No
[2023-03-12 18:54] LABS: Chlamydia by PCR, Vaginal Swab Not Detected (NotDetected); GC by PCR, Vaginal Swab Not Detected (NotDetected)
== END 2023-03-12 08:14 | disposition home or self-care (01) ==
LOC: ERS 06:43
DX: A64 Unspecified sexually transmitted disease (principal)
CPT/HCPCS: 81001; 87480; 87491; 87510; 87591; 87660; 96372; 99283; J0696

== ENCOUNTER 2024-09-02 18:26 | Emergency (ER) | payer OTHER ==
[2024-09-02 19:42] LABS: #Basophils 0.04 10x3/uL (0.0-0.2); %Basophils 0.4 % (0.0-1.0); %Eosinophils 0.7 % (0.0-10.0); %Lymphocytes 21.4 % (21.0-51.0); %Monocytes 4.5 % (0.0-10.0); %Neutrophils 72.6 % (42.0-75.0); Hematocrit 35.6 % (36.0-47.0); Hemoglobin 11.6 g/dL (12.0-16.0); Mean Corpuscular HGB CONC 32.6 g/dL (32.0-36.0); Mean Corpuscular Hemoglobin 29.4 pg (27.0-31.0); Mean Corpuscular Volume 90.1 fL (78.0-98.0); Mean Platelet Volume 10.1 fL (7.4-10.4); Platelet Count 320 10x3/uL (130-400); RBC Distribution Width 12.9 % (11.5-14.5); Red Blood Cell (RBC) Count 3.95 mill/uL (4.20-5.40)
[2024-09-02 19:52] LABS: Anion Gap 10 mmol/L (10-20); BUN (Urea Nitrogen) 9 mg/dL (7.0-18.7); Calc. Creatinine Clearance 0 mL/min (70-130); Calcium 9.4 mg/dL (7.8-10.44); Carbon Dioxide 23 mmol/L (22-29); Chloride 107 mmol/L (98-107); Estimated GFR 110; Glucose 140 mg/dL (70-105); Potassium 3.4 mmol/L (3.5-5.1); Sodium 137 mmol/L (136-145)
[2024-09-02] MEDS ORDERED: Misoprostol 200 MCG TAB PO SCH (21:15)
== END 2024-09-02 21:58 | disposition home or self-care (01) ==
LOC: ERS 18:26
DX: O03.4 Incomplete spontaneous abortion without complication (principal)
CPT/HCPCS: 36415; 80048; 84702; 85025; 99284